=== PATIENT | female | born 2000 | race Caucasian/White ===

== ENCOUNTER 2020-06-01 13:59 | Outpatient (REF) | payer MEDICARE, MEDICAID, SELFPAY ==
--- NOTE | 2020-06-01 | XR_ITS ---
EXAMINATION: CERVICAL AND THORACIC SPINE X-RAY CLINICAL INFORMATION: Pain COMPARISON: None TECHNIQUE: 2 views of the thoracic spine and 4 views of the cervical spine FINDINGS: Cervical spine: Bone alignment is normal. No fracture or dislocation is seen. Disc spaces are normal. Prevertebral soft tissues are normal. Thoracic spine: Bone alignment is normal. No fracture or dislocation is seen. Disc spaces are normal. Paraspinal soft tissues are normal. IMPRESSION: Unremarkable exam.
--- NOTE | 2020-06-01 | US_ITS ---
EXAMINATION: US SOFT TISSUE OF THE NECK CLINICAL INFORMATION: Localized swelling, lump COMPARISON: None TECHNIQUE: Linear transducer grayscale and color Doppler examination of the upper back/lower neck region. FINDINGS: There is no focal sonographic abnormality in the area of palpable concern at the upper aspect of the back and lower neck. IMPRESSION: There is no focal sonographic abnormality in the area of palpable concern at the upper aspect of the back and lower neck. If further imaging evaluation is desired, an MRI could be considered.
== END 2020-06-01 14:00 | disposition home or self-care (01) ==
LOC: HO.US 13:59
PROVIDERS: Visit Provider Emergency Medicine
DX: R22.2 Localized swelling, mass and lump, trunk (principal)
CPT/HCPCS: 72040; 72070; 76536

== ENCOUNTER 2021-02-06 11:18 | Outpatient (REF) | payer MEDICARE, MEDICAID, SELFPAY | END 2021-02-06 11:19 | disposition home or self-care (01) | LOC: HO.LAB 11:18 | PROVIDERS: Visit Provider Internal Medicine | DX: Z20.822 Contact with and (suspected) exposure to COVID-19 (principal) | CPT/HCPCS: C9803; U0003; U0005 ==

== ENCOUNTER 2021-05-05 12:16 | Emergency (ER) | payer MEDICARE, MEDICAID, SELFPAY ==
[2021-05-05 12:30] VITALS: BP 128/82; PULSE 94; RESP 16; TEMP 36.4; O2SAT 98; BMI 35.9
[2021-05-05 13:06] LABS: MANUAL DIFF FLAG NO
[2021-05-05 13:08] LABS: Basophils Percent Auto 0.2 % (0-2); Eosinophils Absolute Auto 0.2 X10*3/uL (0.0-0.4); Eosinophils Percent Auto 1.1 % (0-4); Hematocrit 42.9 % (37-47); Hemoglobin 13.8 g/dl (12.0-16.0); Imm Gran Pct Auto 0.6 % (0.0-0.4); Lymphocytes Absolute Auto 1.1 X10*3/uL (1.2-4.9); Lymphocytes Percent Auto 6.7 % (20-40); Mean Corpuscular HGB Conc 32.2 g/dl (31.0-35.0); Mean Corpuscular Hemoglobin 26.6 pg (27.0-33.0); Mean Corpuscular Volume 82.7 fL (80-98); Mean Platelet Volume 9.9 fL (9.4-12.3); Monocytes Absolute Auto 0.9 X10*3/uL (0.1-1.2); Monocytes Percent Auto 5.5 % (2-11); Neutrophils Absolute Auto 14.6 X10*3/uL (2.0-8.3); Neutrophils Percent Auto 85.9 % (45-73); Platelet Count 355 X10*3/uL (160-400); Red Blood Count 5.19 X10*6/uL (4.20-5.50)
[2021-05-05 13:26] LABS: Alanine Aminotransferase 32 U/L (0-31); Albumin Level 4.6 g/dL (3.5-5.0); Alkaline Phosphatase 94 U/L (39-117); Anion Gap 16 (12-20); Aspartate Amino Transferase 22 U/L (5-31); Bilirubin Direct 0.3 mg/dL (0.0-0.5); Bilirubin Total 0.9 mg/dL (0.0-1.0); Blood Urea Nitrogen 12 mg/dL (9-16); Calcium 10.2 mg/dL (8.4-10.2); Carbon Dioxide 20 mmol/L (22-29); Chloride 110 mmol/L (96-108); Creatinine Clr Calc Pharmacy 115.7; Estimated Glomerular Filt Rate > 60; Glucose Random 114 mg/dL (60-115); Lipase 10 U/L (8-78); Potassium 4.5 mmol/L (3.3-5.1); Sodium 141 mmol/L (135-145); Total Protein 7.6 g/dL (6.5-8.0)
== END 2021-05-05 14:18 | disposition left against medical advice (07) ==
PROVIDERS: Emergency Provider Emergency Medicine
DX: R11.10 Vomiting, unspecified (principal); R19.7 Diarrhea, unspecified; R10.13 Epigastric pain
CPT/HCPCS: 36415; 80048; 80076; 83690; 85025; 99282; 99283; 99284

== ENCOUNTER 2023-11-22 17:31 | Outpatient (REF) | payer MEDICAID, SELFPAY ==
[2023-11-23 17:24] LABS: C. trachomatis RNA TMA DETECTED (NOT DETECTED); Candida glabrata RNA NOT DETECTED (NOT DETECTED); Candida species RNA NOT DETECTED (NOT DETECTED); N. gonorrhoeae RNA TMA NOT DETECTED (NOT DETECTED); Trichomonas vaginalis RNA NOT DETECTED (NOT DETECTED)
== END 2023-11-22 17:32 | disposition home or self-care (01) ==
LOC: HO.HHCLNP 17:31
PROVIDERS: Visit Provider Nurse Practitioner
DX: N89.8 Other specified noninflammatory disorders of vagina (principal); Z20.2 Contact with and (suspected) exposure to infections with a predominantly sexual mode of transmission
CPT/HCPCS: 36415; 81513; 87481; 87491; 87591; 87661

== ENCOUNTER 2023-11-25 12:00 | Outpatient (REF) | payer MEDICAID, SELFPAY ==
[2023-11-25 13:45] LABS: Estimated Average Glucose 108 mg/dL; Hemoglobin A1c % 5.4 % (<6.0)
[2023-11-25 14:25] LABS: Cholesterol 166 mg/dL (<200); HDL Cholesterol 39 mg/dL (>40); LDL Cholesterol Calculated 109 mg/dL (<100); Triglycerides 90 mg/dL (<150)
[2023-11-26 08:37] LABS: Follicle Stimulating Hormone 5.5 mIU/mL; Lutenizing Hormone 14.4 mIU/mL; Prolactin 14.6 ng/mL
[2023-11-26 08:39] LABS: HBS Num1 4.76 mIU/mL (0-7.99); HBc Num1 0.19 S/CO (0.00-0.79); HIV AB/AG Nonreactive (Nonreactive); HIV Num 1 0.05 S/CO (0.00-0.99); Hepatitis B Core Antibody Nonreactive (Nonreactive); Hepatitis B Surface Antigen Negative (Negative); ~HepC Num1 0.07 S/CO (0.00-0.79); ~Hepatitis B Surface Antibody NONREACTIVE (Nonreactive); ~Hepatitis C Antibody Nonreactive (Nonreactive)
[2023-11-27 08:43] LABS: RPR Rapid Plasma Reagin NON-REACTIVE (NON-REACTIVE)
== END 2023-11-25 12:01 | disposition home or self-care (01) ==
LOC: HO.HHCL 12:00
PROVIDERS: Visit Provider Nurse Practitioner
DX: N93.9 Abnormal uterine and vaginal bleeding, unspecified (principal); Z11.3 Encounter for screening for infections with a predominantly sexual mode of transmission
CPT/HCPCS: 36415; 80061; 83001; 83002; 83036; 84146; 84443; 86592; 86704; 86706; 86803; 87340; 87389

== ENCOUNTER 2024-02-13 17:41 | Outpatient (REF) | payer MEDICAID, SELFPAY ==
[2024-02-14 13:09] LABS: Bacterial Vaginosis PCR NEGATIVE (Negative); Candida Group PCR DETECTED (Not Detect); Candida glab krusei PCR NOT DETECTED (Not Detect); Trichomonas vaginalis PCR NOT DETECTED (Not Detect)
== END 2024-02-13 17:42 | disposition home or self-care (01) ==
LOC: HO.HHCLNP 17:41
PROVIDERS: Visit Provider Internal Medicine
DX: N89.8 Other specified noninflammatory disorders of vagina (principal)
CPT/HCPCS: 0352U

== ENCOUNTER 2024-12-11 17:42 | Outpatient (REF) | payer MEDICAID, SELFPAY ==
--- OUTSIDE RECORDS SUMMARY | 2024-12-11 17:45 | XMS_ITS | Clinical Summary ---
Author Organization [address] [facility] Address [address] [place] [address] Phone Care Team Providers Care Instructor Pilot Name Role Phone Physician, Pcp Unknown Primary Care Provider Laura vailable Medications silver sulfADIAZINE (Silvadene) 1 % cream Apply topically 1 (one) time each day. 50 g 4 07/28/20 25 Active povidone-iodine (Betadine) 10 % topical solution Apply topically 1 (one) time each day. 473 mL 4 Active silver sulfADIAZINE (Silvadene) 1 % cream Apply topically 1 (one) time each day. 50 g 5 09/21/19 26 Active Active Problems Problem Noted Date Diagnosed Date Ingrown left big toenail 07/17/2024 Fungal toenail infection 07/17/2024 Cellulitis 07/17/2024 Encounters Date Type Department Care Team Description 09/21/2024 2:30 PM EST Office Visit Orthopedic Surgery - [place] [address] [address] Jaun Barry, DPM Cellulitis of great toe of left foot (Primary Dx); Ingrowing nail from Last 3 Months Social History Tobacco Use Types Packs/Day Years Used Date Smoking Tobacco: Never Assessed Comments Unknown Sex and Gender Information Value Date Recorded Sex Assigned at Not on file Legal Sex Female 9:53 PM EST Gender Identity Not on file Sexual Orientation Not on file Plan of Treatment Health Maintenance Due Date Last Done Comments Cervical Cancer Screening: Pap Smear 2020 Depression Screening 07/28/2022 Social Influencers of Health Screening 07/28/2022 COVID-19 Vaccine ( season) 2024 05/31/2022, 10/26/2021, 10/05/2021 DTaP,Tdap,and Td Vaccines (6 - Td or Tdap) 10/25/2024 10/25/2014, 02/24/2009, 05/17/2003, Additional history exists Influenza Vaccine (Season Ended) 2025 07/13/2020, 09/20/2017, 04/30/2013 Hepatitis B Vaccines Completed 1999, 1999, 1999 IPV Vaccines Completed 05/17/2003, 05/26, 1999, Additional history exists MMR Vaccines Completed 05/17/2003, 06/05/2000 HIB Vaccines Aged Out 04/29/2009, 09/1999, 1999, Additional history exists No longer eligible based on patient's age to complete this topic Varicella Vaccines Completed 11/14/2009, 06/05/2000 HPV Vaccines Completed 04/30/2013, 10/24, 11/14/2009 Hepatitis A Vaccines Completed 06/10/2015, 11/18/19 15 Meningococcal ACWY Vaccine Completed 06/10/2015, HIV Screening Completed 11/25/2023 Hepatitis C Screening Completed 11/25/2023 Meningococcal B Vaccine Aged Out No l onger eligible based on patient's age to complete this topic Pneumococcal Vaccine: Pediatrics (0 to 5 Years) and At-Risk Patients (6 to 64 Years) Aged Out No longer eligible based on patient's age to complete this topic RSV Immunization Patients Under 20 months Aged Out No longer eligible based on patient's age to complete this topic Insurance [place] Care Teams Instructor Pilot Relationship Specialty Start Date End Date Physician, Pcp Unknown PCP - General 07/22/24
--- OUTSIDE RECORDS SUMMARY | 2024-12-11 17:45 | XMS_ITS | Encounter Summary ---
Author Organization [employer] Address [address] [facility] 7t [place] [address] Care Team Providers Care Tacking Machine Operator Name Role Phone Melissaashok Jenae FORD Primary Care Provider [phone] Encounter Details Date Type Department Care Team (Late st Contact Info) Description 12/11/2024 3:00 PM EDT Office Visit [facility] MEDICINE [address] [place] [address] Rhea Alston FNP [address] [place] [address] UTI symptoms (Primary Dx) Social History Tobacco Use Types Packs/Day Years Used Date Smoking Tobacco: Never Smokeless Tobacco: Never Comments Unknown Sex and Gender Information Value Date Recorded Sex Assigned at Female 06/25/2022 10:21 AM EDT Legal Sex Female 10:21 AM EDT Gender Identity Female 06/25/2022 10:21 AM EDT Sexual Orientation Straight 06/25/2022 10 :21 AM EDT documented as of this encounter Last Filed Vital Signs Vital Sign Reading Time Taken Comments Blood Pressure 122/73 12/11/2024 3:00 PM EDT Pulse 72 12/11/2024 3:00 PM EDT Temperature 36.9 ??C (98.4 ??F) 12/11/2024 3:00 PM ED T Respiratory Rate 16 12/11/2024 3:00 PM EDT Oxygen Saturation - - Inhaled Oxygen Concentration - - Weight 114 kg (250 lb 4 oz) 12/11/2024 3:00 PM E DT Height 157.5 cm (5' 2 ) 12/11/2024 3:00 PM EDT Body Mass Index 45.77 12/11/2024 3:00 PM EDT documented in this encounter Plan of Treatment Scheduled Orders Name Type Priority Associated Diagnoses Orde r Schedule Chlamydia/N. Gonorrhoeae RNA, TMA, Urogenitial Microbiology Routine UTI symptoms Ordered: 12/11/2024 Bacterial Vaginosis Panel Microbiology Routine UTI symptoms Ordered: 12/11/2024 documented as of this encounter Procedures Procedure Name Priority Date/Time Associated Diagnosis Comments POCT URINALYSIS DIPSTICK Routine 12/11/2024 3:18 PM EDT UTI symptoms documented in this encounter Results * POCT Urinalysis (12/11/2024 3:18 PM EDT) Color, UA Yellow Clarity, UA Clear Glucose, UA Negative Bilirubin, UA Negative Ketones, UA Negative Spec Grav, UA 1.030 Blood, UA Negative Negative, None Detected pH, UA 6.0 Protein, UA Negative Urobilinogen, UA 0.2 Leukocytes, UA Negative Negative, Rare, Trace Nitrite, UA Negative Negative, None Detected Appearance, UA clear QC Media Lot # [id number] Lot# Expiration Date [id number] Urine 12/11/2024 3:18 PM EDT Rhea Alston OFFICE HELPER POINT OF CARE TEST ENTER/EDIT ORDERABLES Final Result documented in this encounter Visit Diagnoses Diagnosis UTI symptoms- Primary documented in this encounter Care Teams Tacking Machine Operator Relationship Specialty Start Date End Date Jenae Goodman NP [address] [place] [id number] PCP - General Family Medicine 05/31/23 documented as of this encounter
--- OUTSIDE RECORDS SUMMARY | 2024-12-11 17:45 | XMS_ITS | Encounter Summary ---
Author Organization [employer] Address [address] [facility] 7t [place] [address] Care Team Providers Care Oilseed Meat Presser Name Role Phone Jenae Goodman NP Primary Care Provider [phone] Reason for Visit * Reason Onset Date Comments Per Mo 12/11/2024 Encounter Details Date Type Department Care Team ([facility] st Contact Info) Description 12/11/2024 Telephone [facility] MEDICINE [address] [place] [address] Rhea Alston FNP [address] [place] [address] Per Mo Social History Tobacco Use Types Packs/Day Years Used Date Smoking Tobacco: Never Smokeless Tobacco: Never Comments Unknown Sex and Gender Information Value Date Recorded Sex Assigned at Female 06/25/2022 10:21 AM EDT Legal Sex Female 10:21 AM EDT Gender Identity Female 06/25/2022 10:21 AM EDT Sexual Orientation Straight 06/25/2022 10 :21 AM EDT documented as of this encounter Miscellaneous Notes * Telephone Encounter - Johanna Aden MA - 12/11/2024 3:48 PM EDT MAGDI called pt and advised her to come in on Saturday12/15/2024 downstairs to lab for urine sample due to sample not being enough during visit with Rhea. documented in this encounter Plan of Treatment Not on file documented as of this encounter Visit Diagnoses Not on filedocumented in this encounter Care Teams Oilseed Meat Presser Relationship Specialty Start Date End Date Jenae Goodman NP [address] [place] [address] PCP - General Family Medicine 05/31/23 documented as of this encounter
--- OUTSIDE RECORDS SUMMARY | 2024-12-11 17:45 | XMS_ITS | Encounter Summary ---
Author Organization [facility] Address [address] [facility] 7t [place] [address] Care Team Providers Care Massage Operator Name Role Phone Jenae Goodman NP Primary Care Provider [phone] Encounter Details Date Type Department Care Team (Latest Contact Info) Description 12/11/2024 Travel Social History Tobacco Use Types Packs/Day Years Used Date Smoking Tobacco: Never Smokeless Tobacco: Never Comments Unknown Sex and Gender Information Value Date Recorded Sex Assigned at Female 06/25/2022 10:21 AM EDT Legal Sex Female 10:21 AM EDT Gender Identity Female 06/25/2022 10:21 AM EDT Sexual Orientation Straight 06/25/2022 10 :21 AM EDT documented as of this encounter Plan of Treatment Not on file documented as of this encounter Visit Diagnoses Not on filedocumented in this encounter Care Teams Massage Operator Relationship Specialty Start Date End Date Jenae Goodman NP [address] [place] [id number] PCP - General Family Medicine 05/31/23 documented as of this encounter
--- OUTSIDE RECORDS SUMMARY | 2024-12-11 17:45 | XMS_ITS | Encounter Summary ---
Author Organization [employer] [facility] Address [address] [place] [address] 7 [place] [address] Care Team Providers Care Area Attendant Name Role Phone Jenae Goodman NP Primary Care Provider [phone] Reason for Visit * Reason Onset Date Comments Nurse Triage 03/17/2024 Encounter Details Date Type Department Care Team ([facility] st Contact Info) Description 03/17/2024 Telephone [facility] MEDICINE [address] [place] [address] Jenae Goodman NP [address] [place] [address] Nurse Triage Social History Tobacco Use Types Packs/Day Years [...] encounter Miscellaneous Notes * Telephone Encounter - Shreyas Tse - 03/17/2024 1:13 PM EDT Symptoms: Vision Loss or Change, Headache Outcome: Talk to a nurse or provider within 15 minutes Reason: Eye pain The caller accepted this outcome documented in this encounter Plan of Treatment Not on file documented as of this encounter Visit Diagnoses Not on filedocumented in this encounter Care Teams Area Attendant Relationship Specialty Start Date End Date Jenae Goodman NP [address] [place] [address] PCP - General Family Medicine 05/31/23 documented as of this encounter
--- OUTSIDE RECORDS SUMMARY | 2024-12-11 17:45 | XMS_ITS | Clinical Summary ---
Author Organization [employer] Address [address] [facility] 7t [place] [address] Care Team Providers Care Roofing Superintendent Name Role Phone Jenae Goodman NP Primary Care Provider [phone] Allergies No known active allergies Medications acetaminophen (Tylenol) 325 MG tablet 2 tablet by Oral route every 4 to 6 hours prn fever or pain 6 Active dexAMETHasone (Maxidex) 0.1 % ophthalmic suspension Instill 3-4 drops into ear canal 2-3 times a day, reduce dose gradually after ear inflammation and pruritis improves. Repeat as necessary 2 Active fluconazole (Diflucan) 150 MG tabletIndicatio ns:Yeast infection Take one tablet then after 72 hrs take another tablet 2 tablet 4 Active selenium sulfide (Selsun) 2.5 % shampooIndicati ons:Seborrheic dermatitis Lather in to scalp twice a week while in shower, leave on 5 minutes and rinse 118 mL 2 4 Active Vit-Fe Fumarate-FA ( Vitamins) 28-0.8 MG tabletIndicatio ns:Family Planning Take 1 tablet by mouth Once per day. 90 tablet 3 4 06/23/20 25 Active betamethasone valerate (Valisone) 0.1 % lotionIndicatio ns:Seborrheic dermatitis Apply topically 2 times daily. For 1 week 60 mL 1 4 Active Active Problems Problem Noted Date Diagnosed Date Trying to get 06/23/2024 Assessment & Plan (06/23/2024 3:05 PM EDT): Late period. Hx of irregular periods. HCG-Urine resulted negative. -prescribed vitamins. Flaky scalp 06/23/2024 Assessment & Plan (06/23/2024 1:18 PM EDT): Dry scalp with large flakes. -will prescribe selenium sulfide shampoo Ingrown left big toenail 06/23/2024 Assessment & Plan (09/04/2024 6:21 PM EST): Underlying cellulitis, recommended proper nail care. Will send trial of bactrim, if symptoms persist recommended to fnathan prn Assessment & Plan (06/23/2024 1:19 PM EDT): Left great toe ingrown, too sensitive for any procedural intervention. -referred to podiatry 06/23/23 Fungal toenail infection 06/23/2024 Assessment & Plan (06/23/2024 3:05 PM EDT): Bilateral great toes consistent with fungal infection. -will prescribe short course of Augmentin as well as anti-fungal. -referred to Podiatry 06/23/24 Seborrheic dermatitis 06/23/2024 Vaginal itching 02/13/2024 Assessment & Plan (02/13/2024 11:05 AM EDT): Patient reports recent CRS test for CG came back negative Today BV ordered Bilateral impacted cerumen 02/13/2024 Assessment & Plan (02/13/2024 11:06 AM EDT): Debrox for 4 days then come back nurse visit for er lavage Otitis media 02/13/2024 Abnormal uterine bleeding (AUB) 02/13/2024 Assessment & Plan (02/13/2024 3:08 PM EDT): -may be due to infection process given complaint of vaginal discharge -labs ordered to evaluate for underlying cause for AUB -will inform patient of lab and imaging results once obtained Vaginal discharge 02/13/2024 Assessment & Plan (02/13/2024 3:06 PM EDT): -sureswab sample obtained for testing. Will treat as necessary -advised to abstain from sexual intercourse until test results have been received -will call with test results Routine screening for STI (sexually transmitted infection) 02/13/2024 Assessment & Plan (02/13/2024 3:09 PM EDT): -patient is not forthcoming regarding sexual activity, however she is agreeable to testing. -will treat/ vaccinate as necessary pending test results Closed fracture of right hand with routine heali ng 03/10/2023 Overview (03/10/2023): Avulsion fracture 08/09/22 MRI F/u PRN Kidney stone 03/13/2017 Attention deficit hyperactivity disorder, combin ed type 04/30/2013 Oppositional defiant disorder 04/30/2013 Encounters Date Type Department Care Team Description 12/11/2024 3:00 PM EDT Office Visit [facility] MEDICINE [address] [place] [address] Rhea Alston FNP UTI symptoms (Primary Dx) 12/11/2024 Telephone [facility] MEDICINE [address] [place] [address] Rhea Alston FNP Per Mo 12/11/2024 Travel 12/09/2024 Telephone [facility] MEDICINE [address] [place] [address] Jenae Goodman NP Nurse Triage 11/06/2024 Population Health Risk Score [facility] ([facility]) Department [address] [id number] Provider, Population Health Generic 10/08/2024 Telephone [facility] MEDICINE [address] [place] [address] Kimberly Alas RN from Last 3 Months Immunizations Name Administration Dates Next Due DTP 02/24/2009,1999,1999 DTaP 05/17/2003,1999 HPV, Quadrivalent 04/30/2013,11/07/2011,11/15/19 10 Hep A, ped/adol, 2 dose 06/10/2015,11/17/2014 Hep B, Adolescent or Pediatric 1999,1999,1999 Hib (HbOC) 04/29/2009, 0,1999,06/26 IPV 05/17/2003, 0,1999,09/15 Influenza injectable quadriv alent IIV4 with preservative 09/20/2017 Influenza injectable quadriv alent preservative free 07/13/2020 Influenza, Split (incl. lula fied surface antigen) 04/30/2013 MMR 05/17/2003,06/05/2000 Meningococcal MCV4P [id number]-[id number] 06/10/2015,04/30/20 13 Tdap 10/25/2014 Varicella 11/14/2009,06/05/2000 Social History Tobacco Use Types Packs/Day Years Used Date Smoking Tobacco: Never Smokeless Tobacco: Never Tobacco Cessation:Counseling Given: Not Answered Comments Unknown Sex and Gender Information Value Date Recorded Sex Assigned at Female 06/25/2022 10:21 AM EDT Legal Sex Female 10:21 AM EDT Gender Identity Female 06/25/2022 10:21 AM EDT Sexual Orientation Straight 06/25/2022 10 :21 AM EDT Last Filed Vital Signs Vital Sign Reading Time Taken Comments Blood Pressure 122/73 12/11/2024 3:00 PM EDT Pulse 72 12/11/2024 3:00 PM EDT Temperature 36.9 ??C (98.4 ??F) 12/11/2024 3:00 PM ED T Respiratory Rate 16 12/11/2024 3:00 PM EDT Oxygen Saturation 97% 07/09/2024 2:23 PM EST Inhaled Oxygen Concentration - - Weight 114 kg (250 lb 4 oz) 12/11/2024 3:00 PM E DT Height 157.5 cm (5' 2 ) 12/11/2024 3:00 PM EDT Body Mass Index 45.77 12/11/2024 3:00 PM EDT Plan of Treatment Health Maintenance Due Date Last Done Comments Depression Screening 1999 SDOH Screening 1999 Alcohol/Substance Use Screening 2011 Family Planning (PISQ) 2014 Dental Oral Exam 06/16/2021 12/14/2020, 07/2018, 04/07/2015, Additional history exists Dental Prophylaxis 06/16/2021 12/14/2020, 1 09/06/2017, 04/07/2015, Additional history exists Dental X-Ray: Bitewings 12/15/2021 12/15/19 21, 07/07/2018, 04/07/2015, Additional history exists Dental X-Ray: Full Mouth 12/16/2023 12/14/2020, 04/27 COVID-19 Vaccine ( season) 2024 05/31/2022, 10/26/2021, 10/05/2021 Influenza Vaccine (#1) 2024 , 09/20/2017, 04/30/2013 HPV/Cotest 12/15/2024 Pap Smear 12/15/2024 12/15/2021 Tobacco Screening 12/11/2025 12/11/2024 DTaP/Tdap/Td Vaccines (7 - Td or Tdap) 10/04/2034 10/04/2024, 10/25/2014, 02/24/2009, Additional history exists Zoster Vaccines (1 of 2) 2049 RSV Patients and Patients Aged 60 years or older (1 - 1-dose 75+ series) 2074 Hepatitis B Vaccines Completed 1999, 1999, 1999 IPV Vaccines Completed 05/17/2003, 05/26, 1999, Additional history exists HIB Vaccines Aged Out 04/29/2009, 09/1999, 1999, Additional history exists No longer eligible based on patient's age to complete this topic HPV Vaccines Completed 04/30/2013, 10/24, 11/14/2009 Hepatitis A Vaccines Completed 06/10/2015, 11/18/19 15 Meningococcal Vaccine Completed 06/10/2015, 013 HIV Screening Completed 11/25/2023, 06/26, 10/06/2020 Hepatitis C Screening Completed 11/25/2023 , 07/11/2022, 10/06/2020 Pneumococcal Vaccine: Pediatrics (0 to 5 Years) and At-Risk Patients (6 to 49) Years) Aged Out No longer eligible based on patient's age to complete this topic RSV under 20 months Aged Out No longe r eligible based on patient's age to complete this topic Rotavirus Vaccines Aged Out No longer eligible based on patient's age to complete this topic Procedures Procedure Name Priority Date/Time Associated Diagnosis Comments POCT URINALYSIS DIPSTICK Routine 12/11/2024 3:18 PM EDT UTI symptoms HEPATITIS C AB W/REFL TO HCV RNA, QN, PCR Routine 11/25/2023 12:02 PM EDT Routine screening for STI (sexually transmitted infection) HIV 1/2 ANTIGEN/ANTIBODY, FOURTH GENERATION W/RFL Routine 11/25/2023 12:02 PM EDT Routine screening for STI (sexually transmitted infection) HM PAP/HPV Routine 12/15/2021 2:55 PM EDT PROPHYLAXIS - ADULT Routine 12/14/2020 1 2:00 AM EDT INTRAORAL - COMPLETE SERIES OF RADIOGRAPHIC IMAGES Routine 12/14/2020 12:00 AM EDT PERIODIC ORAL EVALUATION - ESTABLISHED PATIENT Routine 12/14/2020 12:00 AM EDT from Last 3 Months or Most Recently Relevant to Health Maintenance Results * POCT Urinalysis (12/11/2024 3:18 PM [...] Media Lot # [id number] Lot# Expiration Date [id number] Urine 12/11/2024 3:18 PM EDT Rhea Alston MILITARY SCIENCE INSTRUCTOR POINT OF CARE TEST ENTER/EDIT ORDERABLES Final Result * Hepatitis C Antibody with Reflex to HCV, RNA, Quantitative, Real-Time PCR (11/25/2023 12:02 PM EDT) Hepatitis C Antibody Nonreactive Nonreactive [facility] Comment:Antibodies to HCV no t detected; does not exclude early acuteHCV infection. Blood Venous blood specimen / Unknown 11/25/2023 12:02 PM EDT 11/25/2023 1:16 PM EDT [facility] LAB BLOOD ORDERABLES Final Resu lt [facility] [address] [place] [address] [phone] * HIV-1/2 Antigen and Antibodies, Fourth Generation, with Reflexes (11/25/2023 12:02 PM EDT) HIV AB/AG Nonreactive Nonreactive [facility] Comment:HIV-1 p24 Ag and/or HIV-1/HIV-2 Ab not detected.A test result that is nonreactive does not exclude thepossibility of exposure to or infection with HIV-1 and/orHIV-2. Nonreactive results in this assay for individualswith prior exposure to HIV-1 and/or HIV-2 may be due toantigen and antibody levels that are below the limit ofdetection of this assay.The [employer] HIV Ag/Ab Combo assay result andsupplemental assay results should be interpreted inconjunction with the patient's clinical presentation,history and other laboratory results. If the results areinconsistent with clinical evidence, additional testing issuggested to confirm the result. Blood Venous blood specimen / Unknown 11/25/2023 12:02 PM EDT 11/25/2023 1:16 PM EDT [facility] TELEGRAPH DISPATCHER LAB BLOOD ORDERABLES Final Resu lt [facility] [address] [place] [address] [phone] * HM PAP/HPV (12/15/2021 2:55 PM EDT) us Historical Provider HEALTH MAINTENANCE Final Result from Last 3 Months or Most Recently Relevant to Health Maintenance Insurance [facility] MEDICA[facility] STAND ADULT Care Teams Roofing Superintendent Relationship Specialty Start Date End Date Jenae Goodman NP [address] [place] [address] PCP - General Family Medicine 05/31/23
--- OUTSIDE RECORDS SUMMARY | 2024-12-11 17:45 | XMS_ITS | Encounter Summary ---
Author Organization [employer] [facility] Address [address] [place] [address] 7t [place] [address] Care Team Providers Care Laser Printing Operator Name Role Phone Vesta Casper Primary Care Provider [phone] Jenae Goodman NP Primary Care Provider [phone] Encounter Details Date Type Department Care Team (Latest Contact Info) Description 12/14/2020 Abstract C CONVERSIONS Dental, Provider, DDS Social History Tobacco Use Types Packs/Day Years [...] on filedocumented in this encounter Care Teams Laser Printing Operator Relationship Specialty Start Date End Date Vesta Casper FNP PCP - General Family Medicine 02/21/22 05/30/23 Jenae Goodman NP [address] [place] [id number] PCP - General Family Medicine 05/31/23 documented as of this encounter
--- OUTSIDE RECORDS SUMMARY | 2024-12-11 17:45 | XMS_ITS | Encounter Summary ---
Author Organization [employer] Address [address] [facility] [address] [place] [address] Care Team Providers Care Wilton Weaver Name Role Phone Jenae Goodman NP Primary Care Provider [phone] Reason for Visit * Reason Onset Date Comments Nurse Triage 12/09/2024 Encounter Details Date Type Department Care Team ([facility] st Contact Info) Description 12/09/2024 Telephone [facility] [address] [place], [place] [phone] Jenae Goodman NP [address] [place] [address] Nurse Triage Social History Tobacco Use Types [...] encounter Miscellaneous Notes * Telephone Encounter - Anabel Campbell RN - 12/09/2024 12:11 PM EDT called pt to triage, spoke to pt pt states 2 days duration of frequency, urgency, small amounts, burning and pressure. pt denies known fever, rash, severe pain, back pain, or strong odor. given appt Saturday at pt request, on blue team at 3:00 for exam. advised home care: rest, fluids, monitor temperature, and call back if worsening or new concerns. pt understands and agrees with plan. insurance verified. Protocol Used: Urinary Symptoms (Adult) Protocol-Based Disposition: See in Office or Video Visit Today Video visit offer not recorded Positive Triage Question: * Urinating more frequently than usual (i.e., frequency) OR new-onset of the feeling of an urgent need to urinate (i.e., urgency) * All higher-acuity triage questions were negative Care Advice Discussed: * Reasons To Call Back - Fever occurs - Pain or burning with urination - Unable to urinate and bladder feels full - You become worse * Telephone Encounter - Loan Corley - 12/09/2024 11:39 AM EDT Symptom: Urination Pain Outcome: Schedule a same-day appointment or talk to a nurse or provider today Reason: Caller denied all higher acuity questions The caller accepted this outcome. documented in this encounter Plan of Treatment Not on file documented as of this encounter Visit Diagnoses Not on filedocumented in this encounter Care Teams Wilton Weaver Relationship Specialty Start Date End Date Jenae Goodman NP [address] [place] [address] PCP - General Family Medicine 05/31/23 documented as of this encounter
--- OUTSIDE RECORDS SUMMARY | 2024-12-11 17:45 | XMS_ITS | Encounter Summary ---
Author Organization [employer] [facility] Address [address] [place] [address] 7[address] [place] [address] Care Team Providers Care Laboratory Machinist Name Role Phone Jenae Goodman NP Primary Care Provider [phone] Encounter Details Date Type Department Care Team ([facility] st Contact Info) Description 06/11/2024 Orders Only [facility] [address] [place] [address] Provider, Historical, Social History Tobacco Use Types Packs/Day Years [...] on file documented as of this encounter Procedures Procedure Name Priority Date/Time Associated Diagnosis Comments HM PAP/HPV Routine 12/15/2021 2:55 PM EDT documented in this encounter Results * HM PAP/HPV (12/15/2021 2:55 PM EDT) us Historical Provider HEALTH MAINTENANCE Final Result documented in this encounter Visit Diagnoses Not on filedocumented in this encounter Care Teams Laboratory Machinist Relationship Specialty Start Date End Date Jenae Goodman NP [address] [place] [address] PCP - General Family Medicine 05/31/23 documented as of this encounter
[2024-12-12 02:34] LABS: CT PCR NOT DETECTED (Not Detect.); NG PCR NOT DETECTED (Not Detect.)
[2024-12-12 11:41] LABS: Bacterial Vaginosis PCR POSITIVE (Negative); Candida Group PCR NOT DETECTED (Not Detect); Candida glab krusei PCR NOT DETECTED (Not Detect); Trichomonas vaginalis PCR NOT DETECTED (Not Detect)
== END 2024-12-11 17:43 | disposition home or self-care (01) ==
LOC: HO.HHCLNP 17:42
PROVIDERS: Visit Provider Nurse Practitioner Family
DX: R39.9 Unspecified symptoms and signs involving the genitourinary system (principal)
CPT/HCPCS: 81515; 87491; 87591

== ENCOUNTER 2024-12-16 14:49 | Outpatient (REF) | payer MEDICAID, SELFPAY ==
--- OUTSIDE RECORDS SUMMARY | 2024-12-16 17:40 | XMS_ITS | Encounter Summary ---
Author Organization [employer] Address [address] [place] [address] [address] [place] [address] Care Team Providers Care Optical Advisor Name Role Phone Jenae Goodman NP Primary Care Provider [phone] Reason for Visit * Reason Onset Date Comments Results 12/16/2024 Encounter Details Date Type Department Care Team ([facility] st Contact Info) Description 12/16/2024 Telephone [facility] [address] [place] [address] Rhea Alston FNP [address] [place] [address] Results Social History Tobacco Use Types Packs/Day Years Used Date Smoking Tobacco: Never Smokeless Tobacco: Never Alcohol Answer Date Recorded Q1: How often do you have a drink containing alc ohol? 2 12/16/2024 Q2: How many drinks containi ng alcohol do you have on a typical day when you are drinking? 0 12/16/2024 Q3: How often do you have six or more drinks on one occasion? 2 12/16/2024 Depression Answer Date Recorded Patient Health Questionnaire-9 Score 0 12/16/2024 Patient Health Questionnaire-9 Score 0 12/16/2024 Last PHQ-9: Questionnaire Data Not on file 0 12/16/2024 Depression Answer Date Recorded Patient Health Questionnaire-2 Score 0 12/16/2024 Comments Unknown Sex and Gender Information Value Date Recorded Sex Assigned at Female 06/25/2022 10:21 AM EDT Legal Sex Female 10:21 AM EDT Gender Identity Female 06/25/2022 10:21 AM EDT Sexual Orientation Straight 06/25/2022 10 :21 AM EDT documented as of this encounter Miscellaneous Notes * Telephone Encounter - Rosario James RN - 12/16/2024 8:41 AM EDT Second call attempt regarding message below. Voicemail box full. Will re-task for third attempt. From: SENDY Philip Sent: 12/15/2024 1:40 PM EDT To: [facility] Blue Team Nurses Can you please let Sariah know her test came back positive for BV and I have sent antibiotics to her her pharmacy on record [facility] Thank you documented in this encounter Plan of Treatment Not on file documented as of this encounter Visit Diagnoses Not on filedocumented in this encounter Additional Health Concerns Assessment Noted Time PHQ-9 Depression Total Score: 0 12/17/19 25 2:28 PM EDT documented as of this encounter Care Teams Optical Advisor Relationship Specialty Start Date End Date Jenae Goodman NP [address] [place] [address] PCP - General Family Medicine 05/31/23 documented as of this encounter
--- OUTSIDE RECORDS SUMMARY | 2024-12-16 17:40 | XMS_ITS | Encounter Summary ---
Author Organization [employer] Address [address] [place] [address] [address] [place] [address] Care Team Providers Care Head Gauge Unit Operator Name Role Phone Jenae Goodman NP Primary Care Provider [phone] Reason for Visit * Reason Onset Date Comments Per Mo 12/11/2024 Encounter Details Date Type Department Care Team (Late st Contact Info) Description 12/11/2024 Telephone [facility] [address] [place] [address] Rhea Alston FNP [address] [place] [address] Per Mo Social History Tobacco Use Types [...] on filedocumented in this encounter Care Teams Head Gauge Unit Operator Relationship Specialty Start Date End Date Jenae Goodman NP [address] [place] [id number] PCP - General Family Medicine 05/31/23 documented as of this encounter
--- OUTSIDE RECORDS SUMMARY | 2024-12-16 17:40 | XMS_ITS | Encounter Summary ---
Author Organization [employer] Address [address] [place] [address] Care Team Providers Care Police Investigator Name Role Phone Jenae Goodman NP Primary Care Provider [phone] Reason for Visit * Reason Comments Annual Exam Encounter Details Date Type Department Care Team ([facility] Contact Info) Description 12/16/2024 2:45 PM EDT Office Visit [facility] [address] [place] [address] Sulema Cantrell MD [address] [place] [address] Annual physical exam (Primary Dx); Routine screening for STI (sexually transmitted infection); Dietary counseling; Exercise counseling; Class 3 severe obesity due to excess calories without serious comorbidity with body mass index (BMI) of 45.0 to 49.9 in adult Social History Tobacco Use Types Packs/Day Years Used Date Smoking Tobacco: Never Smokeless Tobacco: Never Tobacco Cessation:Counseling Given: No Alcohol Answer Date Recorded Q1: How often [...] Sign Reading Time Taken Comments Blood Pressure 126/76 12/16/2024 2:27 PM EDT Pulse 84 12/16/2024 2:27 PM EDT Temperature 36.8 ??C (98.3 ??F) 12/16/2024 2:27 PM ED T Respiratory Rate 20 12/16/2024 2:27 PM EDT Oxygen Saturation 98% 12/16/2024 2:27 PM EDT Inhaled Oxygen Concentration - - Weight 113 kg (250 lb) 12/16/2024 2:27 PM EDT Height 157.5 cm (5' 2 ) 12/16/2024 2:27 PM EDT Body Mass Index 45.73 12/16/2024 2:27 PM EDT documented in this encounter Progress Notes * Sulema Cantrell MD - 12/16/2024 2:45 PM EDT SUBJECTIVE Sariah Montana is a 24 y.o. female who presents for Annual Exam. HPI Ms Sariah Montana is here for her annual physical exam. 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 No complaints today. Patient feels overall well. Patient Active Problem List Diagnosis Attention deficit hyperactivity disorder, combined type Kidney stone Oppositional defiant disorder Closed fracture of right hand with routine healing Vaginal itching Bilateral impacted cerumen Otitis media Abnormal uterine bleeding (AUB) Vaginal discharge Routine screening for STI (sexually transmitted infection) Trying to get Flaky scalp Ingrown left big toenail Fungal toenail infection Seborrheic dermatitis No Known Allergies Current Outpatient Medications on File Prior to Visit Medication Sig Dispense Refill acetaminophen (Tylenol) 325 MG tablet 2 tablet by Oral route every 4 to 6 hours prn fever or pain dexAMETHasone (Maxidex) 0.1 % ophthalmic suspension Instill 3-4 drops into ear canal 2-3 times a day, reduce dose gradually after ear inflammation and pruritis improves. Repeat as necessary fluconazole (Diflucan) 150 MG tablet Take one tablet then after 72 hrs take another tablet 2 tablet0 metroNIDAZOLE (Flagyl) 500 MG tablet Take 1 tablet (500 mg) by mouth 2 times daily for 7 days. 14 tablet 0 [DISCONTINUED] betamethasone valerate (Valisone) 0.1 % lotion Apply topically 2 times daily. For 1 week 60 mL 1 [DISCONTINUED] Vit-Fe Fumarate-FA ( Vitamins) 28-0.8 MG tablet Take 1 tablet by mouth Once per day. 90 tablet 3 [DISCONTINUED] selenium sulfide (Selsun) 2.5 % shampoo Lather in to scalp twice a week while in shower, leave on 5 minutes and rinse 118 mL 2 No current facility-administered medications on file prior to visit. Review of Systems Constitutional: Negative for activity change, appetite change, chills and diaphoresis. HENT: Negative for dental problem, drooling, ear discharge, ear pain and hearing loss. Eyes: Negative for pain, discharge and itching. Respiratory: Negative for cough, choking and chest tightness. Cardiovascular: Negative for chest pain and leg swelling. Gastrointestinal: Negative for blood in stool and diarrhea. Genitourinary: Negative for difficulty urinating, dyspareunia, dysuria, enuresis, flank pain, frequency and genital sores. Musculoskeletal: Negative for arthralgias, gait problem and joint swelling. Skin: Negative for pallor. Neurological: Negative for dizziness, seizures, speech difficulty, light- headedness and numbness. Psychiatric/Behavioral: Negative for behavioral problems, confusion and decreased concentration. OBJECTIVE Vitals: 12/16/24 1427 BP: 126/76 BP Location: Right arm Patient Position: Sitting BP Cuff Size: Large adult Pulse: 84 Resp: 20 Temp: 98.3 ??F (36.8 ??C) TempSrc: Oral SpO2: 98% Weight: 250 lb (113 kg) Height: 5' 2 (1.575 m) Physical Exam Constitutional: General: She is not in acute distress. Appearance: Normal appearance. She is not ill-appearing, toxic-appearing or diaphoretic. HENT: Head: Normocephalic. Right Ear: Tympanic membrane normal. There is no impacted cerumen. Left Ear: Tympanic membrane normal. There is no impacted cerumen. Nose: Nose normal. No congestion or rhinorrhea. Mouth/Throat: Mouth: Mucous membranes are moist. Eyes: General: No scleral icterus. Right eye: No discharge. Left eye: No discharge. Pupils: Pupils are equal, round, and reactive to light. Cardiovascular: Rate and Rhythm: Normal rate and regular rhythm. Heart sounds: No murmur heard. No friction rub. No gallop. Pulmonary: Effort: Pulmonary effort is normal. No respiratory distress. Breath sounds: No stridor. No wheezing, rhonchi or rales. Chest: Chest wall: No tenderness. Abdominal: General: There is no distension. Palpations: Abdomen is soft. There is no mass. Tenderness: There is no abdominal tenderness. There is no right CVA tenderness or left CVA tenderness. Musculoskeletal: General: Normal range of motion. Cervical back: Normal range of motion. Neurological: General: No focal deficit present. Mental Status: She is alert and oriented to person, place, and time. Psychiatric: Mood and Affect: Mood normal. Assessment/Plan Assessment/Plan Diagnoses and all orders for this visit: Annual physical exam Comments: Normal exam Patient is to maintain a healthy and balanced diet. 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 Orders: - CBC auto differential; Future - Comprehensive Metabolic Panel; Future - TSH W/Reflex to FT4; Future - T-SPOT??.TB; Future Routine screening for STI (sexually transmitted infection) Comments: Asymptomatic Safe sexual practices recommended. Patient will be contacted with results. Orders: - HIV-1/2 Antigen and Antibodies, Fourth Generation, with Reflexes; Future - Hepatitis C Antibody with Reflex to HCV, RNA, Quantitative, Real-Time PCR; Future - Syphilis Screen; Future Dietary counseling Exercise counseling Class 3 severe obesity due to excess calories without serious comorbidity with body mass index (BMI) of 45.0 to 49.9 in adult Dietary Recommendations: Fruits, vegetables, whole grains, protein foods, and fat-free or low-fat dairy products are healthychoices. Eat different types of protein foods in your diet. This can include seafood, lean meats, poultry, beans, peas, lentils, nuts, seeds, soy products, and eggs. Limit foods and beverages higher in added sugars, saturated fat, and sodium. Exercise Recommendations: At least 150 minutes of moderate-intensity physical activity per week, or an equivalent combinationof moderate- and vigorous-intensity activity documented in this encounter Miscellaneous Notes * Patient Education Note - Sulema Cantrell MD - 12/16/2024 6:41 PM EDT Images from the original note were not included. Patient Education Table of Contents Healthy Eating, Adult To view videos and all your education online visit, [email or web address] or scan this QR code with your smartphone. Access to this content will in one year. Healthy Eating, Adult Healthy eating may help you get and keep a healthy body weight, reduce the risk of chronic disease,and live a long and productive life. It is important to follow a healthy eating pattern. Your nutritional and calorie needs should be met mainly by different nutrient-rich foods. What are tips for following this plan? Reading food labels Read labels and choose the following: ? Reduced or low sodium products. ? Juices with 100% fruit juice. ? Foods with low saturated fats (<3 g per serving) and high polyunsaturated and monounsaturated fats. ? Foods with whole grains, such as whole wheat, cracked wheat, brown rice, and wild rice. ? Whole grains that are fortified with folic acid. This is recommended for females who are or who want to become . Read labels and do not eat or drink the following: ? Foods or drinks with added sugars. These include foods that contain brown sugar, corn sweetener, corn syrup, dextrose, fructose, glucose, high-fructose corn syrup, honey, invert sugar, lactose, malt syrup, maltose, molasses, raw sugar, sucrose, trehalose, or turbinado sugar. ? Limit your intake of added sugars to less than 10% of your total daily calories. Do not eat more than the following amounts of added sugar per day: ? 6 teaspoons (25 g) for females. ? 9 teaspoons (38 g) for males. ? Foods that contain processed or refined starches and grains. ? Refined grain products, such as white flour, degermed cornmeal, white bread, and white rice. Shopping Choose nutrient-rich snacks, such as vegetables, whole fruits, and nuts. Avoid high-calorie and high-sugar snacks, such as potato chips, fruit snacks, and candy. Use oil-based dressings and spreads on foods instead of solid fats such as butter, margarine, sour cream, or cream cheese. Limit pre-made sauces, mixes, and instant products such as flavored rice, instant noodles, and ready-made pasta. Try more plant-protein sources, such as tofu, tempeh, black beans, edamame, lentils, nuts, and seeds. Explore eating plans such as the Mediterranean diet or vegetarian diet. Try heart-healthy dips made with beans and healthy fats like hummus and guacamole. Vegetables go great with these. Cooking Use oil to saut?? or stir-dietrich foods instead of solid fats such as butter, margarine, or lard. Try baking, boiling, grilling, or broiling instead of frying. Remove the fatty part of meats before cooking. Steam vegetables in water or broth. Meal planning At meals, imagine dividing your plate into fourths: ? One-half of your plate is fruits and vegetables. ? One-fourth of your plate is whole grains. ? One-fourth of your plate is protein, especially lean meats, poultry, eggs, tofu, beans, or nuts. Include low-fat dairy as part of your daily diet. Lifestyle Choose healthy options in all settings, including home, work, school, restaurants, or stores. Prepare your food safely: ? Wash your hands after handling raw meats. ? Where you prepare food, keep surfaces clean by regularly washing with hot, soapy water. ? Keep raw meats separate from dwnoh-wz-oyu foods, such as fruits and vegetables. ? dry molder, meat, poultry, and eggs to the recommended temperature. Get a food thermometer. ? Store foods at safe temperatures. In general: ? Keep cold foods at 40?F (4.4?C) or below. ? Keep hot foods at 140?F (60?C) or above. ? Keep your freezer at 0?F (-17.8?C) or below. ? Foods are not safe to eat if they have been between the temperatures of 40?140?F (4.4?60?C) for more than 2 hours. What foods should I eat? Fruits Aim to eat 1??2? cups of fresh, canned (in natural juice), or frozen fruits each day. One cup of fruit equals 1 small apple, 1 large banana, 8 large strawberries, 1 cup (237 g) canned fruit, ? cup (82 g) dried fruit, or 1 cup (240 mL) 100% juice. Vegetables Aim to eat 2?4 cups of fresh and frozen vegetables each day, including different varieties and colors. One cup of vegetables equals 1 cup (91 g) broccoli or cauliflower florets, 2 medium carrots, 2 cups (150 g) raw, leafy greens, 1 large tomato, 1 large bowling pepper, 1 large sweet potato, or 1 medium white potato. Grains Aim to eat 5?10 ounce-equivalents of whole grains each day. Examples of 1 ounce- equivalent of grains include 1 slice of bread, 1 cup (40 g) zjpfv-wp-koc cereal, 3 cups (24 g) popcorn, or ? cup (93 g)cooked rice. Meats and other proteins Try to eat 5?7 ounce-equivalents of protein each day. Examples of 1 ounce- equivalent of protein include 1 egg, ? oz nuts (12 almonds, 24 pistachios, or 7 walnut halves), 1/4 cup (90 g) cooked beans, 6 tablespoons (90 g) hummus or 1 tablespoon (16 g) peanut butter. A cut of meat or fish that is the size of a deck of cards is about 3?4 ounce-equivalents (85 g). Of the protein you eat each week, try to have at least 8 sounce (227 g) of seafood. This is about 2servings per week. This includes salmon, trout, billy, sardines, and anchovies. Dairy Aim to eat 3 cup-equivalents of fat-free or low-fat dairy each day. Examples of 1 cup-equivalent ofdairy include 1 cup (240 mL) milk, 8 ounces (250 g) yogurt, 1? ounces (44 g) natural cheese, or 1 cup (240 mL) fortified soy milk. Fats and oils Aim for about 5 teaspoons (21 g) of fats and oils per day. Choose monounsaturated fats, such as canola and olive oils, mayonnaise made with olive oil or avocado oil, avocados, peanut butter, and mostnuts, or polyunsaturated fats, such as sunflower, corn, and soybean oils, walnuts, pine nuts, sesame seeds, sunflower seeds, and flaxseed. Beverages Aim for 6 eight-ounce glasses of water per day. Limit coffee to 3?5 eight-ounce cups per day. Limit caffeinated beverages that have added calories, such as soda and energy drinks. If you drink alcohol: ? Limit how much you have to: ? 0?1 drink a day if you are female. ? 0?2 drinks a day if you are male. ? Know how much alcohol is in your drink. In the [place] one drink is one 12 oz bottle of beer (355 mL), one 5 oz glass of wine (148 mL), or one 1? oz glass of hard liquor (44 mL). Seasoning and other foods Try not to add too much salt to your food. Try using herbs and spices instead of salt. Try not to add sugar to food. This information is based on [place] nutrition guidelines. To learn more, visit chooseIG Guitarsplate.gov. Exact amounts may vary. You may need different amounts. This information is not intended to replace advice given to you by your health care provider. Make sure you discuss any questions you have with your health care provider. Document Released: 2018-11-24 Document Updated: 2023-05-13 Document Reviewed: 2023-05-13 [employer] Patient Education ? 2024 [employer] documented in this encounter Plan of Treatment Scheduled Orders Name Type Priority Associated Diagnoses Orde r Schedule CBC auto differential Lab Routine Annual physical exam Expected: 12/16/2024 (Approximate), Expires: 12/16/2025 Comprehensive Metabolic Panel Lab Routine Annual physical exam Expected: 12/16/2024 (Approximate), Expires: 12/16/2025 TSH W/Reflex to FT4 Lab Routine Annual physical exam Expected: 12/16/2024 (Approximate), Expires: 12/16/2025 HIV-1/2 Antigen and Antibodies, Fourth Generation, with Reflexes Lab Routine Routine screening for STI (sexually transmitted infection) Expected: 12/16/2024 (Approximate), Expires: 12/16/2025 Hepatitis C Antibody with Reflex to HCV, RNA, Quantitative, Real-Time PCR Lab Routine Routine screening for STI (sexually transmitted infection) Expected: 12/16/2024, Expires: 12/16/2025 Syphilis Screen Lab Routine Routine screening for STI (sexually transmitted infection) Expected: 12/16/2024, Expires: 12/16/2025 T-SPOT??.TB Lab Routine Annual physical exam Expected: 12/16/2024 (Approximate), Expires: 12/16/2025 documented as of this encounter Visit Diagnoses Diagnosis Annual physical exam- Primary Routine general medical examination at a health care facility Routine screening for STI (sexually transmitted infection) Screening examination for venereal disease Dietary counseling Dietary surveillance and counseling Exercise counseling Class 3 severe obesity due to excess calories without serious comorbidity with body mass index (BMI) of 45.0 to 49.9 in adult documented in this encounter Additional Health Concerns Assessment Noted Time PHQ-9 Depression Total Score: 0 12/17/19 25 2:28 PM EDT documented as of this encounter Care Teams Police Investigator Relationship Specialty Start Date End Date Jenae Goodman NP [address] [place] [id number] PCP - General Family Medicine 05/31/23 documented as of this encounter
--- OUTSIDE RECORDS SUMMARY | 2024-12-16 17:40 | XMS_ITS | Encounter Summary ---
Author Organization [employer] Address [address] [place] [address] [address] [place] [address] Care Team Providers Care Fish And Wildlife Biologist Name Role Phone Jenae Goodman NP Primary Care Provider [phone] Encounter Details Date Type Department Care Team (Latest Contact Info) Description 12/16/2024 Travel Social History Tobacco Use Types Packs/Day [...] documented as of this encounter Care Teams Fish And Wildlife Biologist Relationship Specialty Start Date End Date Jenae Goodman NP [address] [place] [address] PCP - General Family Medicine 05/31/23 documented as of this encounter
--- OUTSIDE RECORDS SUMMARY | 2024-12-16 17:40 | XMS_ITS | Encounter Summary ---
Author Organization [facility] Address [address] [place] [address] 7 [place] [address] Care Team Providers Care Marine Fireman Name Role Phone Jenae Goodman NP Primary Care Provider [phone] Encounter Details Date Type Department Care Team (Late st Contact Info) Description 06/11/2024 Orders Only [facility] MEDICINE [address] [place] [address] Provider, Historical, Social History Tobacco Use Types [...] on filedocumented in this encounter Care Teams Marine Fireman Relationship Specialty Start Date End Date Jenae Goodman NP [address] [place] [address] PCP - General Family Medicine 05/31/23 documented as of this encounter
--- OUTSIDE RECORDS SUMMARY | 2024-12-16 17:40 | XMS_ITS | Encounter Summary ---
Author Organization [employer] Address [address] [place] [address] 7 [place] [address] Care Team Providers Care Brine Tank Tender Name Role Phone Jenae Goodman NP Primary Care Provider [phone] Reason for Visit * Reason Onset Date Comments Results 12/15/2024 Encounter Details Date Type Department Care Team ([facility] st Contact Info) Description 12/15/2024 Telephone [facility] MEDICINE [address] [place] [address] Rhea Alston FNP [address] [place] [address] Results Social History Tobacco Use Types Packs/Day [...] Telephone Encounter - Rosario James RN - 12/15/2024 1:41 PM EDT Call placed to patient. Unable to leave voicemail, box full. Will re-task for re-attempt. ----- Message from Rhea Alston sent at 12/15/2024 1:40 PM EDT ----- Can you please let Sariah know her test came back positive for BV and I have sent antibiotics to her her pharmacy on record [facility] Thank you documented in this encounter Plan of Treatment Not on file documented as of this encounter Visit Diagnoses Not on filedocumented in this encounter Care Teams Brine Tank Tender Relationship Specialty Start Date End Date Jenae Goodman NP [address] [place] [address] PCP - General Family Medicine 05/31/23 documented as of this encounter
--- OUTSIDE RECORDS SUMMARY | 2024-12-16 17:40 | XMS_ITS | Clinical Summary ---
Author Organization 175 [facility] Address [address] [place] [address] Phone Care Team Providers Care Business Unit Controller Name Role Phone Physician, Pcp Unknown Primary [...] PM EST Office Visit [facility] [place] [address] [address] Jaun Barry, DPM Cellulitis of [...] to complete this topic Insurance MEDICAID - [place] Care Teams Business Unit Controller Relationship Specialty Start Date End Date Physician, Pcp Unknown PCP - General 07/22/24
--- OUTSIDE RECORDS SUMMARY | 2024-12-16 17:40 | XMS_ITS | Clinical Summary ---
Author Organization [employer] Address [address] [place] [address] 7 [place] [address] Care Team Providers Care Head Of Partner Development Name Role Phone Jenae Goodman NP Primary Care Provider [phone] Allergies No known active allergies Medications acetaminophen (Tylenol) 325 MG tablet 2 tablet by Oral route every 4 to 6 hours prn fever or pain 6 Active dexAMETHasone (Maxidex) 0.1 % ophthalmic suspension Instill 3-4 drops into ear canal 2-3 times a day, reduce dose gradually after ear inflammation and pruritis improves. Repeat as necessary 2 Active fluconazole (Diflucan) 150 MG tabletIndicati ons:Yeast infection Take one tablet then after 72 hrs take another tablet 2 tablet 4 Active metroNIDAZOLE (Flagyl) 500 MG tabletIndicati ons:UTI symptoms Take 1 tablet (500 mg) by mouth 2 times daily for 7 days. 14 tablet 5 025 Active selenium sulfide (Selsun) 2.5 % shampooIndicat ions:Seborrhei c dermatitis Lather in to scalp twice a week while in shower, leave on 5 minutes and rinse 118 mL 2 4 025 Discontin ued(Thera py completed ) Vit-Fe Fumarate-FA ( Vitamins) 28-0.8 MG tabletIndicati ons:Family Planning Take 1 tablet by mouth Once per day. 90 tablet 3 4 025 Discontin ued(Thera py completed ) betamethasone valerate (Valisone) 0.1 % lotionIndicati ons:Seborrheic dermatitis Apply topically 2 times daily. For 1 week 60 mL 1 025 Discontin ued(Debbie wills completed ) Active Problems Problem Noted Date Diagnosed Date [...] Encounters Date Type Department Care Team Description 12/16/2024 2:45 PM EDT Office Visit [facility] MED & PEDS [address] [place] [address] Sulema Cantrell MD Annual physical exam (Primary Dx); Routine screening for STI (sexually transmitted infection); Dietary counseling; Exercise counseling; Class 3 severe obesity due to excess calories without serious comorbidity with body mass index (BMI) of 45.0 to 49.9 in adult 12/16/2024 Travel 12/16/[address] [address] Rhea Alston FNP Results 12/15/[address] [address] Rhea Alston FNP Results 12/11/2024 3:00 PM EDT Office Visit [address] [place] [address] Rhea Alston FNP UTI symptoms (Primary Dx) 12/11/2024 Telephone [facility] MEDICINE [address] [place], [place] [phone] Rhea Alston FNP Per Mo 12/11/2024 Travel 12/09/2024 Telephone [facility] MEDICINE [address] [place], [place] [phone] Jenae Goodman NP Nurse Triage 11/06/2024 Population Health Risk Score [facility] ([facility]) Department [address] [place] [phone] Provider, Population Health Generic 10/08/2024 Telephone [facility] MEDICINE [address] [place], [place] [phone] Kimberly Alas RN from Last 3 Months [...] Mass Index 45.73 12/16/2024 2:27 PM EDT Plan of Treatment Health Maintenance Due Date Last Done Comments SDOH Screening 1999 Family Planning (PISQ) 2014 Dental Oral Exam 06/16/2021 12/14/2020, 07/2018, 04/07/2015, Additional history exists Dental Prophylaxis 06/16/2021 12/14/2020, 1 09/06/2017, 04/07/2015, Additional history exists Dental X-Ray: Bitewings 12/15/2021 12/15/19 21, 07/07/2018, 04/07/2015, Additional history exists Dental X-Ray: Full Mouth 12/16/2023 12/14/2020, 04/27 COVID-19 Vaccine ( season) 2024 05/31/2022, 10/26/2021, 10/05/2021 Influenza Vaccine (#1) 2024 , 09/20/2017, 04/30/2013 HPV/Cotest 12/15/2024 Pap Smear 12/15/2024 12/15/2021 Alcohol/Substance Use Screening 12/16/2025 12/16/2024 Depression Screening 12/16/2025 12/16/2024, 12/17/19 Tobacco Screening 12/16/2025 12/16/2024 Lipid Panel 11/24/2028 11/25/2023, 07/11/2022 DTaP/Tdap/Td Vaccines (7 - Td or Tdap) [...] Routine 12/11/2024 3:18 PM EDT UTI symptoms BACTERIAL VAGINOSIS PANEL Routine 12/11/2024 12:00 AM EDT UTI symptoms CHLAMYDIA/N. GONORRHOEAE RNA, TMA, UROGENITAL Routine 12/11/2024 12:00 AM EDT UTI symptoms HEPATITIS C AB W/REFL TO HCV RNA, QN, PCR Routine 11/25/2023 12:02 PM EDT Routine screening for STI (sexually transmitted infection) HIV 1/2 ANTIGEN/ANTIBODY, FOURTH GENERATION W/RFL Routine 11/25/2023 12:02 PM EDT Routine screening for STI (sexually transmitted infection) LIPID PANEL, STANDARD Routine 11/25/2023 12:02 PM EDT Abnormal uterine bleeding (AUB) HM PAP/HPV Routine 12/15/2021 2:55 PM EDT [...] Media Lot # [id number] Lot# Expiration Date [id number] Urine 12/11/2024 3:18 PM EDT [employer] POINT OF CARE TEST ENTER/EDIT ORDERABLES Final Result * (ABNORMAL) Bacterial Vaginosis Panel (12/11/2024 12:00 AM EDT) TRICHOMONAS VAGINALIS DETECTION BY PCR NOT DETECTED Not Detect [facility] BACTERIAL VAGINOSIS DETECTION BY PCR POSITIVE(A) Negative [facility] Comment:The BV organism targ ets of the Xpert Xpress MVP test can becommensal in women; Xpert Xpress MVP positive results forbacterial vaginosis should be considered in conjunction withother clinical and patient information to determine thedisease status. Organisms that are not detected by the XpertXpress MVP test have also been reported to be associatedwith BV and aerobic vaginitis.The Xpert Xpress MVP test performance has not been evaluatedin patients under the age of 14. BROOKE GROUP DETECTION BY PCR NOT DETECTED Not Detect [facility] Brooke glab krusei PCR NOT DETECTED Not Detect [facility] Swab Vaginal structure / Unknown 12/11/2024 12/11/2024 Exo Protein Bars [facility] MICROBIOLOGY - GENERAL ORD ERABLES Final Result [facility] [address] [place] [phone] * Chlamydia/N. Gonorrhoeae RNA, TMA, Urogenitial (12/11/2024 12:00 AM EDT) CT PCR NOT DETECTED Not Detect. [facility] Comment:A not detected test result does not exclude the possibilityof infection because test results can be affected byimproper specimen collection, concurrent antibiotic therapy,or the number of organisms in the specimen which may bebelow the sensitivity of the test. As with many diagnostictests, results from the Xpert CT/NG assay should beinterpreted in conjunction with other laboratory andclinical data available to the clinician.Xpert CT/NG performance has not been evaluated in patientsless than 14 years of age. The assay should not be used forthe evaluationof suspected sexual abuse or for other medico-legalindications. Additional testing is recommended in anycircumstance when false positive or false negative resultscould lead to adverse medical, social or psychologicalconsequences. NG PCR NOT DETECTED Not Detect. [facility] Comment:A not detected test result does not exclude the possibilityof infection because test results can be affected byimproper specimen collection, concurrent antibiotic therapy,or the number of organisms in the specimen which may bebelow the sensitivity of the test. As with many diagnostictests, results from the Xpert CT/NG assay should beinterpreted in conjunction with other laboratory andclinical data available to the clinician.Xpert CT/NG performance has not been evaluated in patientsless than 14 years of age. The assay should not be used forthe evaluationof suspected sexual abuse or for other medico-legalindications. Additional testing is recommended in anycircumstance when false positive or false negative resultscould lead to adverse medical, social or psychologicalconsequences. Urine (Urine, Random) 12/11/2024 12/11/2024 Narrative [facility] - 12/12/2024 2:35 AM EDT Urine Rhea KABA LAB MICROBIOLOGY - GENERAL ORD ERABLES Final Result [facility] [address] [place] [phone] * Hepatitis C Antibody with Reflex to HCV, RNA, Quantitative, Real-Time PCR (11/25/2023 12:02 PM EDT) Hepatitis C Antibody Nonreactive Nonreactive [facility] Comment:Antibodies to HCV no t detected; does not exclude early acuteHCV infection. Blood Venous blood specimen / Unknown 11/25/2023 12:02 PM EDT 11/25/2023 1:16 PM EDT Jenae Goodman NP LAB BLOOD ORDERABLES Final Resu lt Performing Organization Address [facility]/ZIP Co de Phone Number [facility] [address] [place] [address] [phone] * HIV-1/2 Antigen and Antibodies, Fourth Generation, with Reflexes (11/25/2023 12:02 PM EDT) HIV AB/AG Nonreactive Nonreactive [facility] Comment:HIV-1 p24 Ag and/or HIV-1/HIV-2 Ab not detected.A test result that is nonreactive does not exclude thepossibility of exposure to or infection with HIV-1 and/orHIV-2. Nonreactive results in this assay for individualswith prior exposure to HIV-1 and/or HIV-2 may be due toantigen and antibody levels that are below the limit ofdetection of this assay.The [email or web address] HIV Ag/Ab Combo assay result andsupplemental assay results should be interpreted inconjunction with the patient's clinical presentation,history and other laboratory results. If the results areinconsistent with clinical evidence, additional testing issuggested to confirm the result. Blood Venous blood specimen / Unknown 11/25/2023 12:02 PM EDT 11/25/2023 1:16 PM EDT Jenae Goodman NP LAB BLOOD ORDERABLES Final Resu lt Performing Organization Address [facility] Co de Phone Number [facility] [address] [place] [address] [phone] * (ABNORMAL) Lipid Panel, Standard (11/25/2023 12:02 PM EDT) Triglycerides 90 <150 mg/dL [facility] Comment:Desirable Triglyceri de: less than 150 mg/dLBorderline High Triglyceride 150-199 mg/dLHigh Triglyceride: 200-499 mg/dLVery High Triglyceride: greater than or equal to 5OO mg/dL Cholesterol 166 <200 mg/dL [facility] Comment:Desirable Cholestero l: less than 200 mg/dLBorderline High Cholesterol: 200-239 mg/dLHigh Cholesterol: greater than 239 mg/dL LDL Cholesterol Calculated 109(H) <100 mg/dL [facility] Comment:Desirable LDL: less than 100 mg/dLNear Optimal/Above Optimal LDL: 110- 129 mg/dLBorderline High LDL: 130-159 mg/dLHigh LDL: 160-189 mg/dLVery High LDL: greater than or equal to 190 mg/dL HDL Cholesterol 39(L) >40 mg/dL [facility] Comment:Desirable HDL: great er than 40 mg/dL Note: This HDL assay may give artificially low results in patients with liver disease. Blood Venous blood specimen / Unknown 11/25/2023 12:02 PM EDT 11/25/2023 1:16 PM EDT Jenae Goodman HAT CHECKER LAB BLOOD ORDERABLES Final Resu lt [facility] [address] [place] [address] [phone] * PAP/HPV (12/15/2021 2:55 PM EDT) Historical Provider HEALTH MAINTENANCE Final Result from Last 3 Months or Most Recently Relevant to Health Maintenance [place] [address] [place] [address] C[place] ST[place] AD[place] Care Teams Head Of Partner Development Relationship Specialty Start Date End Date Jenae Goodman NP [address] [place] [phone] PCP - General Family Medicine 05/31/23
--- OUTSIDE RECORDS SUMMARY | 2024-12-16 17:40 | XMS_ITS | Encounter Summary ---
Author Organization [employer] Address [address] [place] [address] 7 [place] [address] Care Team Providers Care Ordnance Truck Installation Supervisor Name Role Phone Jenae Goodman NP Primary Care Provider [phone] Reason for Visit * Reason Onset Date Comments Nurse Triage 03/17/2024 Encounter Details Date Type Department Care Team (Late st Contact Info) Description 03/17/2024 Telephone [facility] MEDICINE [address] [place] [address] Jenae Goodman NP [address] [place] [address] Nurse Triage Social History Tobacco Use Types [...] on filedocumented in this encounter Care Teams Ordnance Truck Installation Supervisor Relationship Specialty Start Date End Date Jenae Goodman NP [address] [place] [address] PCP - General Family Medicine 05/31/23 documented as of this encounter
--- OUTSIDE RECORDS SUMMARY | 2024-12-16 17:40 | XMS_ITS | Encounter Summary ---
Author Organization [employer] Address [address] [place] [address] 7 [place] [address] Care Team Providers Care Machine Sign Writer Name Role Phone Jenae Goodman NP Primary Care Provider [phone] Encounter Details Date Type Department Care Team [...] on filedocumented in this encounter Care Teams Machine Sign Writer Relationship Specialty Start Date End Date Jenae Goodman NP [address] [place] [address] PCP - General Family Medicine 05/31/23 documented as of this encounter
--- OUTSIDE RECORDS SUMMARY | 2024-12-16 17:40 | XMS_ITS | Encounter Summary ---
Author Organization [employer] Address [address] [place] [address] 7t [place] [address] Care Team Providers Care Divinity Teacher Name Role Phone Jenae Goodman NP Primary Care Provider [phone] Encounter Details Date Type Department Care Team (Late st Contact Info) Description 12/11/2024 3:00 PM EDT Office Visit [facility] MEDICINE [address] [place] [address] Rhea Alston FNP [address] [place] [address] UTI symptoms (Primary Dx) Social History Tobacco [...] Routine 12/11/2024 12:00 AM EDT UTI symptoms documented in this encounter [...] Media Lot # [id number] Lot# Expiration Date [id number] Urine 12/11/2024 3:18 PM EDT [facility] POINT OF CARE TEST ENTER/EDIT ORDERABLES Final Result * (ABNORMAL) Bacterial Vaginosis Panel (12/11/2024 12:00 AM EDT) TRICHOMONAS VAGINALIS DETECTION BY PCR NOT DETECTED Not Detect [facility] BACTERIAL VAGINOSIS DETECTION BY PCR POSITIVE(A) Negative [facility] Comment:The BV organism targ ets [...] DETECTION BY PCR NOT DETECTED Not Detect [facility] Brooke glab krusei PCR NOT DETECTED Not Detect [facility] Swab Vaginal structure / Unknown 12/11/2024 12/11/2024 Rheavalentina Hullgerri [facility] MICROBIOLOGY - GENERAL ORD ERABLES Final Result [facility] [address] [place] [address] [phone] * Chlamydia/N. Gonorrhoeae RNA, TMA, Urogenitial (12/11/2024 12:00 AM EDT) CT PCR NOT DETECTED Not Detect. [facility] Comment:A not detected test result [...] psychologicalconsequences. NG PCR NOT DETECTED Not Detect. [facility] Comment:A not detected test result [...] psychologicalconsequences. Urine (Urine, Random) 12/11/2024 12/11/2024 Narrative [facility] - 12/12/2024 2:35 AM EDT Urine us Rhea Alston V[employer]UNTEER [employer]RE [employer] LAB MICROBIOLOGY - GENERAL ORD ERABLES Final Result [facility] [address] [place] [phone] [phone] documented in this encounter Visit Diagnoses Diagnosis UTI symptoms- Primary documented in this encounter Care Teams Divinity Teacher Relationship Specialty Start Date End Date Jenae Goodman NP [address] [place] [address] PCP - General Family Medicine 05/31/23 documented as of this encounter
--- OUTSIDE RECORDS SUMMARY | 2024-12-16 17:40 | XMS_ITS | Encounter Summary ---
Author Organization [employer] Address [address] [place] [address] 7 [place] [address] Care Team Providers Care Certified Health Education Specialist Name Role Phone Vesta Casper Primary Care Provider [phone] Jenae Goodman NP Primary Care Provider [phone] Encounter Details Date Type Department Care Team (Latest Contact Info) Description 12/14/2020 Abstract [facility] CONVERSIONS Dental, Provider, DDS Social History Tobacco [...] on filedocumented in this encounter Care Teams Certified Health Education Specialist Relationship Specialty Start Date End Date Vesta Casper FNP PCP - General Family Medicine 02/21/22 05/30/23 Jenae Goodman NP [address] [place] [address] PCP - General Family Medicine 05/31/23 documented as of this encounter
[2024-12-16 17:49] LABS: MANUAL DIFF FLAG NO
[2024-12-16 18:00] LABS: Basophils Absolute Auto 0.1 X10*3/uL (0.0-0.2); Basophils Percent Auto 0.5 % (0-2); Eosinophils Absolute Auto 0.2 X10*3/uL (0.0-0.4); Eosinophils Percent Auto 1.4 % (0-4); Hemoglobin 12.6 g/dl (12.0-16.0); Imm Gran Abs Auto 0.07 X10*3/uL (0.00-0.03); Imm Gran Pct Auto 0.5 % (0.0-0.4); Lymphocytes Absolute Auto 2.8 X10*3/uL (1.2-4.9); Lymphocytes Percent Auto 21.4 % (20-40); Mean Corpuscular HGB Conc 32.3 g/dl (31.0-35.0); Mean Corpuscular Hemoglobin 27.6 pg (27.0-33.0); Mean Corpuscular Volume 85.5 fL (80.0-98.0); Monocytes Absolute Auto 0.8 X10*3/uL (0.1-1.2); Monocytes Percent Auto 6.3 % (2-11); Neutrophils Absolute Auto 9.3 x10*3/uL (2.0-8.3); Neutrophils Percent Auto 69.9 % (45-73); Platelet Count 415 X10*3/uL (160-400); Red Blood Count 4.56 X10*6/uL (4.20-5.50); Red Cell Distribution Width 14.2 % (11.0-16.0); White Blood Count 13.3 X10*3/uL (4.8-10.8)
[2024-12-16 18:20] LABS: Alanine Aminotransferase 29 U/L (0-31); Albumin Level 4.3 g/dL (3.5-5.0); Alkaline Phosphatase 75 U/L (39-117); Anion Gap 13 (12-20); Aspartate Amino Transferase 26 U/L (5-31); Bilirubin Total 0.3 mg/dL (0.0-1.0); Blood Urea Nitrogen 13 mg/dL (9-16); Calcium 9.5 mg/dL (8.4-10.2); Carbon Dioxide 26 mmol/L (22-29); Chloride 105 mmol/L (96-108); Estimated Glomerular Filt Rate > 60; Glucose Random 122 mg/dL (60-115); Potassium 3.7 mmol/L (3.3-5.1); Sodium 140 mmol/L (135-145); Total Protein 7.2 g/dL (6.5-8.0)
[2024-12-16 18:37] LABS: TSH reflex Free T4 0.72 uIU/mL (0.32-4.0)
[2024-12-17 03:54] LABS: Syphilis Screen Nonreactive (Nonreactive)
[2024-12-17 04:10] LABS: HIV AB/AG Nonreactive (Nonreactive); HIV Num 1 0.07 S/CO (0.00-0.99); ~HepC Num1 0.08 S/CO (0.00-0.79); ~Hepatitis C Antibody Nonreactive (Nonreactive)
[2024-12-18 22:29] LABS: TS Negative Control Passed; TS Panel A 0; TS Panel B 1; TS Positive Control Passed; TSpotTB Negative (Negative)
== END 2024-12-16 14:50 | disposition home or self-care (01) ==
LOC: HO.CHCLDS 14:49
PROVIDERS: Visit Provider Internal Medicine
DX: Z00.00 Encounter for general adult medical examination without abnormal findings (principal); Z11.3 Encounter for screening for infections with a predominantly sexual mode of transmission; Z11.4 Encounter for screening for human immunodeficiency virus [HIV]; Z11.59 Encounter for screening for other viral diseases; Z11.1 Encounter for screening for respiratory tuberculosis; Z13.29 Encounter for screening for other suspected endocrine disorder
CPT/HCPCS: 36415; 80053; 84443; 85025; 86481; 86780; 86803; 87389

== ENCOUNTER 2024-12-24 10:18 | Outpatient (REF) | payer MEDICAID, SELFPAY ==
[2024-12-24 11:28] LABS: MANUAL DIFF FLAG NO
[2024-12-24 11:32] LABS: Basophils Absolute Auto 0.1 X10*3/uL (0.0-0.2); Basophils Percent Auto 0.4 % (0-2); Eosinophils Absolute Auto 0.3 X10*3/uL (0.0-0.4); Eosinophils Percent Auto 2.5 % (0-4); Hemoglobin 13.3 g/dl (12.0-16.0); Imm Gran Abs Auto 0.05 X10*3/uL (0.00-0.03); Imm Gran Pct Auto 0.4 % (0.0-0.4); Lymphocytes Absolute Auto 2.4 X10*3/uL (1.2-4.9); Mean Corpuscular HGB Conc 31.7 g/dl (31.0-35.0); Mean Corpuscular Hemoglobin 27.4 pg (27.0-33.0); Mean Corpuscular Volume 86.4 fL (80.0-98.0); Mean Platelet Volume 10.1 fL (9.4-12.3); Monocytes Percent Auto 8.6 % (2-11); Neutrophils Absolute Auto 7.8 x10*3/uL (2.0-8.3); Neutrophils Percent Auto 67.1 % (45-73); Platelet Count 420 X10*3/uL (160-400); Red Blood Count 4.86 X10*6/uL (4.20-5.50); Red Cell Distribution Width 14.3 % (11.0-16.0); White Blood Count 11.6 X10*3/uL (4.8-10.8)
--- OUTSIDE RECORDS SUMMARY | 2024-12-24 11:44 | XMS_ITS | Encounter Summary ---
Author Organization [facility] Address [address] [place] [address], [place] [address] Care Team Providers Care Cuprous Chloride Operator Name Role Phone Vesta Casper Primary Care Provider [phone] Jenae Goodman NP Primary Care Provider [phone] Encounter Details Date Type Department Care Team (Latest Contact Info) Description 12/14/2020 Abstract [facility] CONVERSIONS Dental, Provider, DDS Social History [...] as of this encounter Plan of Treatment Upcoming Encounters Date Type Department Care Team ( st Contact Info) Description 03/15/2025 1:45 PM EDT Office Visit [facility] MEDICINE [address] [place] [address] Jenae Goodman NP [address] [place] [address] documented as of this encounter Visit Diagnoses Not on filedocumented in this encounter Care Teams Cuprous Chloride Operator Relationship Specialty Start Date End Date Vesta Casper FNP PCP - General Family Medicine 02/21/22 05/30/23 Jenae Goodman NP [address] [place] [address] PCP - General Family Medicine 05/31/23 documented as of this encounter
--- OUTSIDE RECORDS SUMMARY | 2024-12-24 11:44 | XMS_ITS | Clinical Summary ---
Author Organization 175 [facility] Address [address] [place] [address] Phone Care Team Providers Care Meteorological Aide Name Role Phone Physician, Pcp Unknown Primary [...] 07/17/2024 Fungal toenail infection 07/17/2024 Cellulitis 07/17/2024 Social History Tobacco Use Types Packs/Day Years [...] to complete this topic Insurance MEDICAID - [place] Care Teams Meteorological Aide Relationship Specialty Start Date End Date Physician, Pcp Unknown PCP - General 07/22/24
--- OUTSIDE RECORDS SUMMARY | 2024-12-24 11:44 | XMS_ITS | Clinical Summary ---
Author Organization [employer] Address [address] [place] [address] 7 [place] [address] Care Team Providers Care Manager Project Management Name Role Phone Jenae Goodman NP Primary Care Provider [phone] Allergies No known active allergies Medications acetaminophen (Tylenol) 325 MG tablet 2 tablet by Oral route every 4 to 6 hours prn fever or pain 01/16/20 16 Active dexAMETHasone (Maxidex) 0.1 % ophthalmic suspension Instill 3-4 drops into ear canal 2-3 times a day, reduce dose gradually after ear inflammation and pruritis improves. Repeat as necessary 07/21/20 22 Active fluconazole (Diflucan) 150 MG tabletIndicati ons:Yeast infection Take one tablet then after 72 hrs take another tablet 2 tablet 02/14/20 24 Active sulfamethoxazo le-trimethopri m (Bactrim DS) 800-160 MG tablet Take 1 tablet by mouth 2 times daily for 3 days. 6 tablet 12/25/19 25 025 Active cetirizine (ZyrTEC) 10 MG tablet Take 1 tablet (10 mg) by mouth Once per day. 30 tablet 3 12/25/19 25 026 Active fluticasone (Flonase) 50 MCG/ACT nasal spray Administer 2 sprays into each nostril Once per day. Shake gently. Before first use, prime pump. After use, clean tip and replace cap. 16 g 3 12/25/19 25 026 Active Ketotifen Fumarate (Alaway) 0.035 % solution Administer 1 drop into affected eye(s) if needed in the morning and at bedtime (eye itching). 10 mL 3 12/25/19 25 Active selenium sulfide (Selsun) 2.5 % shampooIndicat ions:Seborrhei c dermatitis Lather in to scalp twice a week while in shower, leave on 5 minutes and rinse 118 mL 2 06/23/20 24 025 Discontinu ed(Therapy completed) Vit-Fe Fumarate-FA ( Vitamins) 28-0.8 MG tabletIndicati ons:Family Planning Take 1 tablet by mouth Once per day. 90 tablet 3 06/23/20 24 025 Discontinu ed(Therapy completed) betamethasone valerate (Valisone) 0.1 % lotionIndicati ons:Seborrheic dermatitis Apply topically 2 times daily. For 1 week 60 mL 1 06/23/20 24 025 Discontinu ed(Therapy completed) metroNIDAZOLE (Flagyl) 500 MG tabletIndicati ons:BV (bacterial vaginosis) Take 1 tablet (500 mg) by mouth 2 times daily for 7 days. 14 tablet 12/16/19 25 025 Active Problems Problem Noted Date Diagnosed Date BV (bacterial vaginosis) 12/17/2024 UTI symptoms 12/17/2024 Trying to get 06/23/2024 Assessment & Plan [...] Encounters Date Type Department Care Team Description 12/24/2024 11:00 AM EDT Office Visit [facility] [address] [place] [phone] Acute UTI (Primary Dx); Seasonal allergic rhinitis, unspecified trigger 12/18/2024 Telephone [facility] [address] [place] [address] Sulema Cantrell MD Results 12/18/2024 Orders Only [facility] [address] [place] [address] Sulema Cantrell MD Other elevated white blood cell (WBC) count (Primary Dx) 12/16/2024 2:45 PM EDT Office Visit [facility] [address] [place] [address] Sulema Cantrell MD Annual physical exam (Primary Dx); Routine screening for STI (sexually transmitted infection); Dietary counseling; Exercise counseling; Class 3 severe obesity due to excess calories without serious comorbidity with body mass index (BMI) of 45.0 to 49.9 in adult 12/16/2024 Travel 12/16/[address] [address] Rhea Alston FNP Results 12/15/[address] [address] Rhea Alston FNP Results 12/11/2024 3:00 PM EDT Office Visit [address] [address] Rhea Alston, [employer] UTI symptoms (Primary Dx); BV (bacterial vaginosis) 12/11/[address] [address] Rhea Alston FNP Per Mo 12/11/2024 Travel 12/09/[address] [address] Jenea Goodman NP Nurse Triage 11/06/2024 Population Health Risk Score [facility] () Department [address] [place] [phone] Provider, Population Health Generic 10/08/2024 Telephone [facility] [address] [place] [address] Kimberly Alas RN from Last 3 Months [...] Sign Reading Time Taken Comments Blood Pressure 125/81 12/24/2024 10:38 AM EDT Pulse 88 12/24/2024 10:38 AM EDT Temperature 36.7 ??C (98 ??F) 12/24/2024 10:38 AM EDT Respiratory Rate 20 12/24/2024 10:38 AM EDT Oxygen Saturation 97% 12/24/2024 10:38 AM EDT Inhaled Oxygen Concentration - - Weight 113 kg (248 lb 12.8 oz) 12/24/2024 10:38 AM EDT Height 157.5 cm (5' 2 ) 12/16/2024 2:27 PM EDT Body Mass Index 45.51 12/16/2024 2:27 PM EDT Plan of Treatment Upcoming Encounters Date Type Department Care Team (Late st Contact Info) Description 03/15/2025 1:45 PM EDT Office Visit [facility] [address] [place] [address] Jenae Goodman NP [address] [place] [address] Health Maintenance Due Date Last Done Comments [...] Vaccine Completed 06/10/2015, 013 HIV Screening Completed 12/16/2024, 040 08/2023, 07/11/2022, Additional history exists Hepatitis C Screening Completed 12/16/2024 , 11/25/2023, 07/11/2022, Additional history exists Pneumococcal Vaccine: Pediatrics (0 to 5 Years) [...] Associated Diagnosis Comments POCT URINALYSIS DIPSTICK Routine 12/24/2024 11:04 AM EDT Acute UTI CBC WITH AUTO DIFFERENTIAL Routine 12/24/2024 10:23 AM EDT Other elevated white blood cell (WBC) count T-SPOT(R).TB Routine 12/16/2024 2:57 PM EDT Annual physical exam SYPHILIS SCREEN Routine 12/16/2024 2:51 PM EDT Routine screening for STI (sexually transmitted infection) HEPATITIS C AB W/REFL TO HCV RNA, QN, PCR Routine 12/16/2024 2:51 PM EDT Routine screening for STI (sexually transmitted infection) HIV 1/2 ANTIGEN/ANTIBODY, FOURTH GENERATION W/RFL Routine 12/16/2024 2:51 PM EDT Routine screening for STI (sexually transmitted infection) TSH W/REFLEX TO FT4 Routine 12/16/2024 2 :51 PM EDT Annual physical exam COMPREHENSIVE METABOLIC PANEL Routine 12/16/2024 2:51 PM EDT Annual physical exam CBC WITH AUTO DIFFERENTIAL Routine 12/16/2024 2:51 PM EDT Annual physical exam POCT URINALYSIS DIPSTICK Routine 12/11/2024 3:18 PM EDT UTI symptoms BACTERIAL VAGINOSIS PANEL Routine 12/11/2024 12:00 AM EDT UTI symptoms CHLAMYDIA/N. GONORRHOEAE RNA, TMA, UROGENITAL Routine 12/11/2024 12:00 AM EDT UTI symptoms LIPID PANEL, STANDARD Routine 11/25/2023 12:02 PM [...] Relevant to Health Maintenance Results * POCT urinalysis dipstick manually resulted (12/24/2024 11:04 AM EDT) Only the most recent of2 resultswithin the time period is included. Pathologist [facility] Color, UA Yellow Clarity, UA Clear Glucose, UA Negative Bilirubin, UA Negative Ketones, UA Positive Comment:Trace Spec Grav, UA 1.025 Blood, UA Negative Negative, None Detected pH, UA 6.5 Protein, UA Trace Urobilinogen, UA 0.2 Leukocytes, UA Trace Negative, Rare, Trace Nitrite, UA Negative Negative, None Detected Urine 12/24/2024 11:0 4 AM EDT Karena Kerns DO POINT OF CARE TEST ENTER/JUAN T ORDERABLES Final Result * (ABNORMAL) CBC auto differential (12/24/2024 10:23 AM EDT) Only the most recent of2 resultswithin the time period is included. White Blood Count 11.6(H) 4.8 - 10.8 X10*3/uL [facility] Red Blood Count 4.86 4.20 - 5.50 X10*6/uL [facility] Hemoglobin 13.3 12.0 - 16.0 g/dl [facility] Hematocrit 42.0 37.0 - 47.0 % [facility] Mean Corpuscular Volume 86.4 80.0 - 98.0 fL [facility] Mean Corpuscular Hemoglobin 27.4 27.0 - 33.0 pg [facility] Mean Corpuscular HGB Conc 31.7 31.0 - 35.0 g/dl [facility] Red Cell Distribution Width 14.3 11.0 - 16.0 % [facility] Platelet Count 420(H) 160 - 400 X10*3/uL [facility] Mean Platelet Volume 10.1 9.4 - 12.3 fL [facility] Neutrophils Percent Auto 67.1 45 - 73 % [facility] Imm Gran Pct Auto 0.4 0.0 - 0.4 % [facility] Lymphocytes Percent Auto 21.0 20 - 40 % [facility] Monocytes Percent Auto 8.6 2 - 11 % [facility] Eosinophils Percent Auto 2.5 0 - 4 % [facility] Basophils Percent Auto 0.4 0 - 2 % [facility] NRBC Pct Auto 0.0 0.0 - 0.2 /100WBC [facility] Neutrophils Absolute Auto 7.8 2.0 - 8.3 x10*3/uL [facility] Imm Gran Abs Auto 0.05(H) 0.00 - 0.03 X10*3/uL [facility] Lymphocytes Absolute Auto 2.4 1.2 - 4.9 X10*3/uL [facility] Monocytes Absolute Auto 1.0 0.1 - 1.2 X10*3/uL [facility] Eosinophils Absolute Auto 0.3 0.0 - 0.4 X10*3/uL [facility] Basophils Absolute Auto 0.1 0.0 - 0.2 X10*3/uL [facility] NRBC Abs Auto 0.000 0.0 - 0.012 X10*3/uL [facility] Blood Venous blood specimen / Unknown 12/24/2024 10:23 AM EDT 12/24/2024 11:23 AM EDT us Sulema Cantrell MD LAB BLOOD ORDERABLES Final Result [facility] [address] [place] [phone] * T-SPOT??.TB (12/16/2024 2:57 PM EDT) T Spot TB Negative Negative [facility] Comment:A negative test resu lt does not exclude the possibilityof exposure to or infection with Mycobacteriumtuberculosis (M. tuberculosis). Patients with recentexposure to TB infected individuals exhibiting anegative T-SPOT.TB result should be considered forretesting within 6 weeks or if other relevant clinicalsymptoms indicate. Results from T-SPOT.TB testing mustbe used in conjunction with each individual'sepidemiological history, current medical status,and results of other diagnostic evaluations.The T-SPOT.TB test is qualitative and results arereported as positive, borderline, or negative, giventhat the test controls perform as expected. In linewith the Centers for Disease Control and Prevention's2010 recommendation to report quantitative measurementsalongside the qualitative result, the laboratoryprovides spot counts for informational purposes only.The T-SPOT.TB test should not be interpreted as aquantitative test. TS PANEL A 0 [facility] TS PANEL B 1 [facility] Negative Control Passed [facility] Positive Control Passed [facility] Comment:For additional infor mation, please refer tohttp://education.Needbox AS/faq/PXU832(This link is being provided for informational/educational purposes only.)THIS TEST WAS PERFORMED AT:[email or web address] [place] [email or web address] JJ MD,PHD 12/16/2024 2:57 PM EDT 12/16/2024 5:45 PM EDT us Sulema Cantrell MD LAB BLOOD ORDERABLES Final Result [facility] [address] [place] [phone] * Syphilis Screen (12/16/2024 2:51 PM EDT) Syphilis Screen Nonreactive Nonreactive [facility] Blood 12/16/2024 2:51 PM EDT 12/16/2024 5:45 PM EDT us Thevenin Beauzile MD LAB BLOOD ORDERABLES Final Result Performing Organization Address [facility]/ZIP Co de Phone Number [facility] [address] [place] [phone] * TSH W/Reflex to FT4 (12/16/2024 2:51 PM EDT) TSH reflex Free T4 0.72 0.32 - 4.0 uIU/mL [facility] Blood Venous blood specimen / Unknown 12/16/2024 2:51 PM EDT 12/16/2024 5:45 PM EDT us Sulema Cantrell MD LAB BLOOD ORDERABLES Final Result Performing Organization Address [facility] Co de Phone Number [facility] [address] [place] [phone] * Hepatitis C Antibody with Reflex to HCV, RNA, Quantitative, Real-Time PCR (12/16/2024 2:51 PM EDT) Pathologist [facility] Hepatitis C Antibody Nonreactive Nonreactive [facility] Comment:Antibodies to HCV no t detected; does not exclude early acuteHCV infection. Blood Venous blood specimen / Unknown 12/16/2024 2:51 PM EDT 12/16/2024 5:45 PM EDT us Sulema Cantrell MD LAB BLOOD ORDERABLES Final Result Performing Organization Address [facility] Co de Phone Number [facility] [address] [place] [phone] * HIV-1/2 Antigen and Antibodies, Fourth Generation, with Reflexes (12/16/2024 2:51 PM EDT) HIV AB/AG Nonreactive Nonreactive [facility] Comment:HIV-1 p24 Ag and/or HIV-1/HIV-2 Ab not detected.A test result that is nonreactive does not exclude thepossibility of exposure to or infection with HIV-1 and/orHIV-2. Nonreactive results in this assay for individualswith prior exposure to HIV-1 and/or HIV-2 may be due toantigen and antibody levels that are below the limit ofdetection of this assay.The QC Corpnity HIV Ag/Ab Combo assay result andsupplemental assay results should be interpreted inconjunction with the patient's clinical presentation,history and other laboratory results. If the results areinconsistent with clinical evidence, additional testing issuggested to confirm the result. Blood Venous blood specimen / Unknown 12/16/2024 2:51 PM EDT 12/16/2024 5:45 PM EDT us Sulema Cantrell MD LAB BLOOD ORDERABLES Final Result [facility] [address] [place] [phone] * (ABNORMAL) Comprehensive Metabolic Panel (12/16/2024 2:51 PM EDT) Sodium 140 135 - 145 mmol/L [facility] Potassium 3.7 3.3 - 5.1 mmol/L [facility] Chloride 105 96 - 108 mmol/L [facility] Carbon Dioxide 26 22 - 29 mmol/L [facility] Anion Gap 13 12 - 20 [facility] Urea Nitrogen (BUN) 13 9 - 16 mg/dL [facility] Creatinine, Serum 0.68 0.5 - 1.4 mg/dL [facility] Estimated Glomerular Filt Rate >60 [facility] Comment:Chronic Kidney Disea se: Estimated GFR < 60 mL/min/[id number] Kidney Disease: Estimated GFR < 15 mL/min/1.73m2 Glucose 122(H) 60 - 115 mg/dL [facility] Calcium 9.5 8.4 - 10.2 mg/dL [facility] Bilirubin, Total 0.3 0.0 - 1.0 mg/dL [facility] Aspartate Amino Transferase 26 5 - 31 U/L [facility] Alanine Aminotransferase 29 0 - 31 U/L [facility] Total Protein 7.2 6.5 - 8.0 g/dL [facility] Albumin Level 4.3 3.5 - 5.0 g/dL [facility] Alkaline Phosphatase 75 39 - 117 U/L [facility] Blood Venous blood specimen / Unknown 12/16/2024 2:51 PM EDT 12/16/2024 5:45 PM EDT us Sulema Cantrell MD LAB BLOOD ORDERABLES Final Result Performing Organization Address [facility] Co de Phone Number [facility] [address] [place] [phone] * (ABNORMAL) Bacterial Vaginosis Panel (12/11/2024 12:00 AM EDT) TRICHOMONAS VAGINALIS DETECTION BY PCR NOT DETECTED Not Detect [facility] BACTERIAL VAGINOSIS DETECTION BY PCR POSITIVE(A) Negative [facility] Comment:The BV organism targ ets [...] DETECTION BY PCR NOT DETECTED Not Detect [facility] Rbooke glab krusei PCR NOT DETECTED Not Detect [facility] Swab Vaginal structure / Unknown 12/11/2024 12/11/2024 us Rhea [facility]EM[facility] LAB MICROBIOLOGY - GENERAL ORD ERABLES Final Result Performing Organization Address [facility] Co de Phone Number [facility] [address] [place] [phone] * Chlamydia/N. Gonorrhoeae RNA, TMA, Urogenitial (12/11/2024 12:00 AM EDT) CT PCR NOT DETECTED Not Detect. [facility] Comment:A not detected test result [...] psychologicalconsequences. NG PCR NOT DETECTED Not Detect. [facility] Comment:A not detected test result [...] psychologicalconsequences. Urine (Urine, Random) 12/11/2024 12/11/2024 Narrative [facility] - 12/12/2024 2:35 AM EDT Urine us Rhea Alston [facility] MICROBIOLOGY - GENERAL ORD ERABLES Final Result [facility] [address] [place] [phone] * (ABNORMAL) Lipid Panel, Standard (11/25/2023 12:02 PM EDT) Triglycerides 90 <150 mg/dL [facility] Comment:Desirable Triglyceri de: less than 150 mg/dLBorderline High Triglyceride 150-199 mg/dLHigh Triglyceride: 200-499 mg/dLVery High Triglyceride: greater than or equal to 5OO mg/dL Cholesterol 166 <200 mg/dL [facility] Comment:Desirable Cholestero l: less than 200 mg/dLBorderline High Cholesterol: 200-239 mg/dLHigh Cholesterol: greater than 239 mg/dL LDL Cholesterol Calculated 109(H) <100 mg/dL [facility] Comment:Desirable LDL: less than 100 mg/dLNear Optimal/Above Optimal LDL: 110- 129 mg/dLBorderline High LDL: 130-159 mg/dLHigh LDL: 160-189 mg/dLVery High LDL: greater than or equal to 190 mg/dL HDL Cholesterol 39(L) >40 mg/dL [facility] Comment:Desirable HDL: great er than 40 mg/dL Note: This HDL assay may give artificially low results in patients with liver disease. Blood Venous blood specimen / Unknown 11/25/2023 12:02 PM EDT 11/25/2023 1:16 PM EDT Jenae Goodman NP LAB BLOOD ORDERABLES Final Resu lt [facility] [address] [place] [phone] [phone] * HM PAP/HPV (12/15/2021 2:55 PM EDT) Historical Provider HEALTH MAINTENANCE Final Result from Last 3 Months or Most Recently Relevant to Health Maintenance Insurance [facility] ST[place] AD[place] Care Teams Manager Project Management Relationship Specialty Start Date End Date Jenae Goodman NP [address] [place] [phone] PCP - General Family Medicine 05/31/23
--- OUTSIDE RECORDS SUMMARY | 2024-12-24 11:44 | XMS_ITS | Encounter Summary ---
Author Organization [employer] [facility] Address [address] [place] [address] [address] [place] [address] Care Team Providers Care Artifacts Conservator Name Role Phone Jenae Goodman NP Primary Care Provider [phone] Encounter Details Date Type Department Care Team (Late st Contact Info) Description 06/11/2024 Orders Only [facility] [address] [place] [phone] Provider, MD [place] Social History Tobacco Use Types Packs/Day Years [...] Description 03/15/2025 1:45 PM EDT Office Visit [facility] [address] [place] [phone] Jenae Goodman NP [address] [place] [address] documented as of this encounter Procedures Procedure Name Priority Date/Time Associated Diagnosis Comments HM PAP/HPV Routine 12/15/2021 2:55 PM EDT documented in this encounter Results * HM PAP/HPV (12/15/2021 2:55 PM EDT) Historical Provider HEALTH MAINTENANCE Final Result documented in this encounter Visit Diagnoses Not on filedocumented in this encounter Care Teams Artifacts Conservator Relationship Specialty Start Date End Date Jenae Goodman NP [address] [place] [phone] PCP - General Family Medicine 05/31/23 documented as of this encounter
--- OUTSIDE RECORDS SUMMARY | 2024-12-24 11:44 | XMS_ITS | Encounter Summary ---
Author Organization [employer] Address [address] [place] [address] [address] [place] [address] Care Team Providers Care Clinical Documentation Clerk Name Role Phone Jenae Goodman NP Primary Care Provider [phone] Encounter Details Date Type Department Care Team ([facility] st Contact Info) Description 12/18/2024 Orders Only [facility] [address] [place] [address] Sulema Cantrell MD [address] [place] [address] Other elevated white blood cell (WBC) count (Primary Dx) Social History Tobacco Use Types [...] Description 03/15/2025 1:45 PM EDT Office Visit [facility] [address] [facility] [place], [place] [phone] Jenae Goodman NP [address] [place], [place] [phone] documented as of this encounter Procedures Procedure Name Priority Date/Time Associated Diagnosis Comments CBC WITH AUTO DIFFERENTIAL Routine 12/24/2024 10:23 AM EDT Other elevated white blood cell (WBC) count documented in this encounter Results * (ABNORMAL) CBC auto differential (12/24/2024 10:23 AM EDT) White Blood Count 11.6(H) 4.8 - 10.8 X10*3/uL [facility] Red Blood Count 4.86 4.20 - 5.50 X10*6/uL [facility] Hemoglobin 13.3 12.0 - 16.0 g/dl [facility] Hematocrit 42.0 37.0 - 47.0 % [facility] Mean Corpuscular Volume 86.4 80.0 - 98.0 fL [facility] Mean Corpuscular Hemoglobin 27.4 27.0 - 33.0 pg [facility] Mean Corpuscular HGB Conc 31.7 31.0 - 35.0 g/dl [facility] Red Cell Distribution Width 14.3 11.0 - 16.0 % [facility] Platelet Count 420(H) 160 - 400 X10*3/uL [facility] Mean Platelet Volume 10.1 9.4 - 12.3 fL [facility] Neutrophils Percent Auto 67.1 45 - 73 % [facility] Imm Gran Pct Auto 0.4 0.0 - 0.4 % [facility] Lymphocytes Percent Auto 21.0 20 - 40 % [facility] Monocytes Percent Auto 8.6 2 - 11 % [facility] Eosinophils Percent Auto 2.5 0 - 4 % [facility] Basophils Percent Auto 0.4 0 - 2 % [facility] NRBC Pct Auto 0.0 0.0 - 0.2 /100WBC [facility] Neutrophils Absolute Auto 7.8 2.0 - 8.3 x10*3/uL [facility] Imm Gran Abs Auto 0.05(H) 0.00 - 0.03 X10*3/uL [facility] Lymphocytes Absolute Auto 2.4 1.2 - 4.9 X10*3/uL [facility] Monocytes Absolute Auto 1.0 0.1 - 1.2 X10*3/uL [facility] Eosinophils Absolute Auto 0.3 0.0 - 0.4 X10*3/uL [facility] Basophils Absolute Auto 0.1 0.0 - 0.2 X10*3/uL [facility] NRBC Abs Auto 0.000 0.0 - 0.012 X10*3/uL [facility] Blood Venous blood specimen / Unknown 12/24/2024 10:23 AM EDT 12/24/2024 11:23 AM EDT Sulema Cantrell MD LAB BLOOD ORDERABLES Final Result [facility] [address] [place] [phone] documented in this encounter Visit Diagnoses Diagnosis Other elevated white blood cell (WBC) count- Primary documented in this encounter Additional Health Concerns Assessment Noted Time PHQ-9 Depression Total Score: 0 12/17/19 25 2:28 PM EDT documented as of this encounter Care Teams Clinical Documentation Clerk Relationship Specialty Start Date End Date Jenae Goodman NP [address] [place] [address] PCP - General Family Medicine 05/31/23 documented as of this encounter
--- OUTSIDE RECORDS SUMMARY | 2024-12-24 11:44 | XMS_ITS | Encounter Summary ---
Author Organization [employer] Address [address] [place] [address] Care Team Providers Care Rotor Balancer Name Role Phone Jenae Goodman NP Primary Care Provider [phone] Reason for Visit * Reason Comments uti symptoms Encounter Details Date Type Department Care Team ([facility] st Contact Info) Description 12/24/2024 11:00 AM EDT Office Visit [facility] [address] [place] [id number] Acute UTI (Primary Dx); Seasonal allergic rhinitis, unspecified trigger Social History Tobacco Use Types Packs/Day Years [...] 12.8 oz) 12/24/2024 10:38 AM EDT Height - - Body Mass Index 45.51 12/16/2024 2:27 PM EDT documented in this encounter Plan of Treatment Upcoming Encounters Date Type Department Care Team (Late st Contact Info) Description 03/15/2025 1:45 PM EDT Office Visit [facility] [address] [place], [place] [phone] Jenae Goodman NP [address] [place], [place] [phone] documented as of this encounter Procedures Procedure Name Priority Date/Time Associated Diagnosis Comments POCT URINALYSIS DIPSTICK Routine 12/24/2024 11:04 AM EDT Acute UTI documented in this encounter Results * POCT urinalysis dipstick manually resulted (12/24/2024 11:04 AM EDT) Color, UA Yellow Clarity, UA Clear [...] CARE TEST ENTER/JUAN T ORDERABLES Final Result documented in this encounter Visit Diagnoses Diagnosis Acute UTI- Primary Urinary tract infection, site not specified Seasonal allergic rhinitis, unspecified trigger documented in this encounter Additional Health Concerns Assessment Noted Time PHQ-9 Depression Total Score: 0 12/17/19 25 2:28 PM EDT documented as of this encounter Care Teams Rotor Balancer Relationship Specialty Start Date End Date Jenae Goodman NP [address] [place] [id number] PCP - General Family Medicine 05/31/23 documented as of this encounter
--- OUTSIDE RECORDS SUMMARY | 2024-12-24 11:44 | XMS_ITS | Encounter Summary ---
Author Organization [facility] Address [address] [place] [address] [address] [place] [address] Care Team Providers Care Top Lift Cutter Name Role Phone Jenae Goodman NP Primary Care Provider [phone] Reason for Visit * Reason Onset Date Comments Nurse Triage 03/17/2024 Encounter Details Date Type Department Care Team (Late st Contact Info) Description 03/17/2024 Telephone [facility] [address] [place] [phone] Jenae Goodman NP [address] [place] [address] Nurse Triage Social History Tobacco Use Types [...] Description 03/15/2025 1:45 PM EDT Office Visit [facility] [address] [place] [address] Jenae Goodman NP [address] [place] [address] documented as of this encounter Visit Diagnoses Not on filedocumented in this encounter Care Teams Top Lift Cutter Relationship Specialty Start Date End Date Jenae Goodman NP [address] [place] [address] PCP - General Family Medicine 05/31/23 documented as of this encounter
== END 2024-12-24 10:19 | disposition home or self-care (01) ==
LOC: HO.HHCL 10:18
PROVIDERS: Visit Provider Internal Medicine
DX: D72.828 Other elevated white blood cell count (principal); R73.9 Hyperglycemia, unspecified
CPT/HCPCS: 36415; 85025

== ENCOUNTER 2025-07-29 22:28 | Emergency (ER) | payer SELFPAY ==
[2025-07-29 22:43] VITALS: BP 110/65; PULSE 84; RESP 18; TEMP 36.4; O2SAT 98; BMI 43.5
[2025-07-30 00:07] LABS: Resp Syncy Virus RNA Qual PCR NEGATIVE (Negative); SARS COV2 PCR INHOUSE NEGATIVE (Negative)
[2025-07-30 00:11] VITALS: BP 103/59; PULSE 87; RESP 17; TEMP 36.4; O2SAT 97
[2025-07-30 00:21] LABS: MANUAL DIFF FLAG NO
[2025-07-30 00:23] LABS: Hematocrit 39.3 % (37.0-47.0); Hemoglobin 12.7 g/dl (12.0-16.0); Imm Gran Abs Auto 0.06 X10*3/uL (0.00-0.03); Imm Gran Pct Auto 0.5 % (0.0-0.4); Lymphocytes Absolute Auto 3.2 X10*3/uL (1.2-4.9); Mean Corpuscular HGB Conc 32.3 g/dl (31.0-35.0); Mean Corpuscular Hemoglobin 27.3 pg (27.0-33.0); Mean Corpuscular Volume 84.5 fL (80.0-98.0); NRBC Abs Auto 0.000 X10*3/uL (0.0-0.012); NRBC Pct Auto 0.0 /100WBC (0.0-0.2); Platelet Count 384 X10*3/uL (160-400); Red Blood Count 4.65 X10*6/uL (4.20-5.50); White Blood Count 13.2 X10*3/uL (4.8-10.8)
--- NOTE | 2025-07-30 00:30 | ED.GENADULT ---
HPI - General Adult General Chief complaint: Nausea/Vomiting/Diarrhea Stated complaint: General Medical Time Seen by Provider: 07/30/25 00:03 Source: patient, RN notes reviewed and old records reviewed Mode of arrival: ambulatory Limitations: no limitations History of Present Illness ED Provider: Laina HPI narrative: Patient is a 25 year old female presenting today with nausea, vomiting, and abd pain since 1pm today. She has thrown up 4 times, stated her symptoms started suddenly. Pt endorses bilateral upper abdominal pain and chills. Denies fever, blood in vomit, eating anything out of her normal, sick contacts, or diarrhea. Pt states she could be , LMP was 2-3 months ago, however, her cycle is irregular. No previous abdominal surgeries. Related Data Previous Rx's ?Medication ?Instructions ?Recorded ondansetron 4 mg disintegrating 4 mg PO Q8H PRN nausea and 07/30/25 tablet vomiting #20 tabs Allergies Allergy/AdvReac Type Severity Reaction Status Date / Time No Known Allergies (No Known Allergy Verified 07/29/25 22:44 Allergies*) Review of Systems Constitutional: Constitutional: Reports as per HPI, Denies fatigue, Denies fever(s) and Denies headache(s) ENT: Denies headache(s) Cardiovascular: Cardiovascular: Denies chest pain and Denies dyspnea Respiratory: Respiratory: Denies cough and Denies dyspnea Gastrointestinal: Gastrointestinal: Reports abdominal pain, Denies constipation, Reports nausea and Reports vomiting Genitourinary: Genitourinary: Denies dysuria Musculoskeletal: Musculoskeletal: Denies back pain Integumentary/Breasts: Skin/Breast: Denies rash Neurologic: Denies headache(s) and Denies focal weakness Endocrine: Endocrine: Denies fatigue PMFSH Social History Social History Advance Directives: No Advance Directives Information Provided: No Do you have a plan to hurt others: No Plan Physical Exam ED Vital Signs: Vital Signs - 24 hr 07/29/25 22:43 07/30/25 00:11 Temperature 97.6 F 97.6 F Pulse Rate 84 87 Respiratory Rate 18 17 Blood Pressure 110/65 103/59 L Pulse Oximetry 98 97 Oxygen Delivery Method Room Air Room Air BMI result Body Mass Index 43.5 Const General: healthy appearing, comfortable, no acute distress, alert and awake Nutritional Appearance: well nourished Orientation/consciousness: patient oriented x3 HENMT Head: Yes normocephalic and Yes atraumatic Eyes Eyelids: Yes eyelids normal Conjunctivae: conjunctivae normal Sclerae: sclerae normal Corneas: corneas normal Neck Neck: Yes full ROM Resp Effort & Inspection: normal respiratory effort, able to speak in complete sentences, no audible wheezes and not labored GI Inspection: No distended Palpation (GI): Soft to palpation, not firm, Tenderness to palpation present (GI) in the LLQ, in the LUQ and in the RUQ, no guarding and not rigid Skin General skin exam: no rashes or lesions noted and elasticity normal Neuro General: patient oriented x3 Cognition (Neuro): normal cognition Extrem Other: Moving all extremities well without any obvious deformities Course Reevaluation(s) Reevaluation #1: The patient's labs are quite reassuring, on re-evaluation she reports feeling much better, she has not had any further nausea. She has some minor abdominal discomfort. She has no focal or severe abdominal pain. I discussed with the patient that I still believe her symptoms are most likely a viral origin. We will discharge the patient is stable condition, I discussed return precautions especially develops fevers or severe, worsening or focal abdominal discomfort to return and for re-evaluation for possible imaging which was deferred today. Time: 01:50 Medications Administered Discontinued Medications Generic Name Dose Route Start Last Admin Trade Name Maria Esther PRN Reason Stop Dose Admin Lactated Ringer's 1,000 mls @ 999 mls/hr 07/30/25 00:45 07/30/25 01:29 Lr IV 07/30/25 01:45 999 mls/hr .Q1H1M ANYI Administration Ondansetron HCl 4 mg 07/30/25 00:31 07/30/25 01:30 Ondansetron Hcl 4 Mg/2 Ml Vial IVPUSH 07/30/25 00:32 4 mg ONCE ONE Administration Medical Decision Making Medical Decision Making MDM Narrative: 25-year-old healthy female presents for evaluation of abdominal pain and vomiting that started around 1:00 p.m. this afternoon. She denies any previous surgical procedures. Denies any fevers, chills. Denies any sick contacts. Denies eating anything out of the ordinary. She is tender throughout her entire abdomen, no focal tenderness, no distention, no rigidity or guarding. Vital signs are stable. The patient's symptoms are most consistent with a viral enteritis. We will check basic labs, treat with the in his fluids and Zofran and evaluate. We will also check urinalysis and hCG to evaluate for as the patient is unsure if she is . Differential Diagnosis Differential Diagnoses: The differential diagnosis associated with the presentation includes Gastroenteritis Cholelithiasis Acute cholecystitis most likely Acute appendicitis Constipation Abdominal pain Gastroparesis Lab Data MDM Lab Attestation statement: I reviewed the patient's lab results. Mild leukocytosis to 13.2 which is likely due vomiting. No anemia. Normal platelet count. No electrolyte abnormalities warranting dimension. No significant transaminitis. Lipase with normal limits. The patient is not 07/30/25 00:17 07/30/25 00:17 Labs: Lab Results 07/29/25 07/30/25 07/30/25 Range/Units 23:14 00:17 01:07 WBC 13.2 H (4.8-10.8) X10*3/uL RBC 4.65 (4.20-5.50) X10*6/uL Hgb 12.7 (12.0-16.0) g/dl Hct 39.3 (37.0-47.0) % MCV 84.5 (80.0-98.0) fL MCH 27.3 (27.0-33.0) pg MCHC 32.3 (31.0-35.0) g/dl RDW 13.7 (11.0-16.0) % Plt Count 384 (160-400) X10*3/uL MPV 9.1 L (9.4-12.3) fL Immature Gran % (Auto) 0.5 H (0.0-0.4) % Neut % (Auto) 65.7 (45-73) % Lymph % (Auto) 23.9 (20-40) % [place]ascade % (Auto) 7.1 (2-11) % Eos % (Auto) 2.2 (0-4) % Baso % (Auto) 0.6 (0-2) % Lymph # (Auto) 3.2 (1.2-4.9) X10*3/uL Cascade # (Auto) 0.9 (0.1-1.2) X10*3/uL Eos # (Auto) 0.3 (0.0-0.4) X10*3/uL Baso # (Auto) 0.1 (0.0-0.2) X10*3/uL Abs Immat Gran (auto) 0.06 H (0.00-0.03) X10*3/uL Absolute Neuts (auto) 8.7 H (2.0-8.3) x10*3/uL Absolute Nucleated RBC 0.000 (0.0-0.012) X10*3/uL Nucleated RBC % (auto) 0.0 (0.0-0.2) /100WBC Sodium 141 (135-145) mmol/L Potassium 4.1 (3.3-5.1) mmol/L Chloride 106 (96-108) mmol/L Carbon Dioxide 28 (22-29) mmol/L Anion Gap 11 L (12-20) BUN 12 (9-16) mg/dL Creatinine 0.75 (0.5-1.4) mg/dL Estim Creat Clear Calc 126.4 Estimated GFR > 60 Random Glucose 113 (60-115) mg/dL Calcium 9.2 (8.4-10.2) mg/dL Total Bilirubin 0.3 (0.0-1.0) mg/dL AST 23 (5-31) U/L ALT 36 H (0-31) U/L Alkaline Phosphatase 84 (39-117) U/L Total Protein 6.9 (6.5-8.0) g/dL Albumin 4.2 (3.5-5.0) g/dL Lipase 22 (8-78) U/L Beta HCG, Quant < 2 mIU/mL Urine Color Yellow Urine Appearance Clear Urine pH 6.5 (5.0-9.0) Ur Specific [place] 1.025 (1.005-1.025) Urine Protein Negative (Neg-Trace) mg/dL Urine Glucose (UA) Negative (Negative) mg/dL Urine Ketones Negative (Negative) mg/dL Urine Blood Negative (Negative) Urine Nitrite Negative (Negative) Ur Leukocyte Esterase Negative (Negative) Urine RBC 0-2 (0-2) /HPF Urine WBC 0-5 (0-5) /HPF Ur Squamous Epith Cells 3-5 (0-2) /HPF Urine Bacteria None Seen (None Seen) Hyaline Casts 0-2 (0-2) /LPF Influenza Type A (PCR) NEGATIVE (Negative) Influenza Type B (PCR) NEGATIVE (Negative) RSV RNA Qual (PCR) NEGATIVE (Negative) SARS-CoV-2 RNA (RT-PCR) NEGATIVE (Negative) Discharge Plan Discharge Clinical Impression: Nausea & vomiting Patient Disposition: Home, Self-Care Instructions: Acute Nausea and Vomiting (ED) Additional Instructions: Your workup in the ER today was reassuring. You are not . You did not have any signs of urine infection. Your blood work was reassuring. I believe your symptoms are most likely related to a viral illness. Take Zofran as needed for nausea and vomiting. Drink lots of fluids, small sips at a time. Return for new or worsening symptoms, especially if you develop fevers or severe, localized abdominal pain Prescriptions: New ondansetron 4 mg tablet,disintegrating 4 mg PO Q8H PRN (Reason: nausea and vomiting) Qty: 20 0RF Print Language: Luxembourgish
[2025-07-30 00:46] LABS: Alanine Aminotransferase 36 U/L (0-31); Albumin Level 4.2 g/dL (3.5-5.0); Alkaline Phosphatase 84 U/L (39-117); Anion Gap 11 (12-20); Aspartate Amino Transferase 23 U/L (5-31); Blood Urea Nitrogen 12 mg/dL (9-16); Calcium 9.2 mg/dL (8.4-10.2); Carbon Dioxide 28 mmol/L (22-29); Chloride 106 mmol/L (96-108); Creatinine Clr Calc Pharmacy 126.4; Estimated Glomerular Filt Rate > 60; Lipase 22 U/L (8-78); Potassium 4.1 mmol/L (3.3-5.1); Sodium 141 mmol/L (135-145); Total Protein 6.9 g/dL (6.5-8.0)
[2025-07-30 01:27] LABS: Appearance Urine Clear; Glucose Urine UA Negative (Negative); PH 6.5 (5.0-9.0); Specific Gravity - Urine 1.025 (1.005-1.025)
--- OUTSIDE RECORDS SUMMARY | 2025-07-30 01:27 | XMS_ITS | Encounter Summary ---
Author Organization [employer] [facility] Address [address] [place] [address] [address] [place] [address] Care Team Providers Care Warehouse Delivery Manager Name Role Phone Vesta Casper Primary Care Provider Jenae Robertson CONSULTING SME Primary Care Provider [phone] Encounter Details Date Type Department Care Team (Latest Contact Info) Description 12/14/2020 Abstract [facility] CONVERSIONS Dental, Provider, DDS Social History Tobacco [...] on filedocumented in this encounter Care Teams Warehouse Delivery Manager Relationship Specialty Start Date End Date Vesta Casper FNP PCP - General Family Medicine 02/21/22 05/30/23 Jenae Goodman NP [address] [place] [address] PCP - General Family Medicine 05/31/23 documented as of this encounter
--- OUTSIDE RECORDS SUMMARY | 2025-07-30 01:27 | XMS_ITS | Clinical Summary ---
Author Organization [facility] Address [address] [place] [address] Phone Care Team Providers Care Rope Laying Machine Operator Name Role Phone Physician, Pcp Unknown Primary Care Provider Laura vailable Medications povidone-iodine (Betadine) 10 % topical solution Apply topically 1 (one) time each day. 473 mL 4 Active silver sulfADIAZINE (Silvadene) 1 % cream Apply topically 1 (one) time each day. 50 g 5 09/21/19 26 Active silver sulfADIAZINE (Silvadene) 1 % cream Apply topically 1 (one) time each day. 50 g 4 07/28/20 25 Active Problems Problem Noted Date Diagnosed Date [...] Comments Cervical Cancer Screening: Pap Smear 2020 Social Influencers of Health Screening 07/28/2022 Depression Screening 08/26/2024 DTaP,Tdap,and Td Vaccines (6 - Td or Tdap) 10/25/2024 10/25/2014, 02/24/2009, 05/17/2003, Additional history exists COVID-19 Vaccine ( season) 2025 05/31/2022, 10/26/2021, 10/05/2021 Influenza Vaccine (#1) 2025 0, 09/20/2017, 04/30/2013 RSV Immunization Adult Patients (1 - 1-dose 75+ series) 2074 Hepatitis [...] 5 Years) and At-Risk Patients (6 to 49 Years) Aged Out No longer eligible based on patient's age to complete this topic RSV Immunization Patients Under 20 months Aged Out No longer eligible based on patient's age to complete this topic Insurance MEDICAID - [place] Care Teams Rope Laying Machine Operator Relationship Specialty Start Date End Date Physician, Pcp Unknown PCP - General 07/22/24
--- OUTSIDE RECORDS SUMMARY | 2025-07-30 01:27 | XMS_ITS | Encounter Summary ---
Author Organization [facility] Address [address] [place] [address] Care Team Providers Care Free Lance Model Name Role Phone Jenae Goodman NP Primary Care Provider [phone] Reason for Visit * Reason Onset Date Comments Nurse Triage 03/17/2024 Encounter Details Date Type Department Care Team (Late st Contact Info) Description 03/17/2024 Telephone [facility] [address] [place] [address] Jenae Goodman NP [address] [place] [address] Nurse Triage Social History Tobacco Use Types [...] on filedocumented in this encounter Care Teams Free Lance Model Relationship Specialty Start Date End Date Jenae Goodman NP [address] [place] [address] PCP - General Family Medicine 05/31/23 documented as of this encounter
--- OUTSIDE RECORDS SUMMARY | 2025-07-30 01:27 | XMS_ITS | Encounter Summary ---
Author Organization [employer] [facility] Address [address] [place] [address] [address] [place] [address] Care Team Providers Care Angle Roll Operator Name Role Phone Jenae Goodman NP Primary Care Provider [phone] Encounter Details Date Type Department Care Team (Late st Contact Info) Description 06/11/2024 Orders Only [facility] [address] [place] [address] Provider, Historical, Social History Tobacco Use Types [...] on filedocumented in this encounter Care Teams Angle Roll Operator Relationship Specialty Start Date End Date Jenae Goodman NP [address] [place] [address] PCP - General Family Medicine 05/31/23 documented as of this encounter
--- OUTSIDE RECORDS SUMMARY | 2025-07-30 01:27 | XMS_ITS | Encounter Summary ---
Author Organization [employer] Address [address] [place] [address] [place] [address] Care Team Providers Care Supervisor Policy Change Clerks Name Role Phone Jenae Goodman NP Primary Care Provider [phone] Encounter Details Date Type Department Care Team ([facility] st Contact Info) Description 12/18/2024 Orders Only [facility] [address] [place] [address] Sulema Cantrell MD [address] [place] [address] Other elevated white blood cell (WBC) count [...] Diagnosis Comments CBC WITH AUTO DIFFERENTIAL Routine 07/30/2025 12:17 AM EST Other elevated white blood cell (WBC) count HCG, TOTAL, QN Routine 07/30/2025 12:17 AM EST Other elevated white blood cell (WBC) count LIPASE Routine 07/30/2025 12:17 AM EST Other elevated white blood cell (WBC) count COMPREHENSIVE METABOLIC PANEL Routine 07/30/2025 12:17 AM EST Other elevated white blood cell (WBC) count SARS COV2/INFLUENZA A/B AND RSV RNA QL NAAT Routine 07/29/2025 11:14 PM EST Other elevated white blood cell (WBC) count CBC WITH AUTO DIFFERENTIAL Routine 12/24/2024 10:23 AM EDT Other elevated white blood cell (WBC) count documented in this encounter Results * hCG, Total, Quantitative (07/30/2025 12:17 AM EST) HCG Quantitative <2 mIU/mL [facility] Comment:Weeks post LMP Appro ximate hCG(Last Menstrual Period) Range (mIU/ml)3 - 4 weeks 9 - 1304 - 5 weeks 75 - 2,6005 - 6 weeks 850 - 20,8006 - 7 weeks 4000 - 100,2007 - 12 weeks 11,500 - 289,02585 - 16 weeks 18,300 - 137,70923 - 29 weeks (2nd trimester) 1,400 - 53,31737 - 41 weeks (3rd trimester) 940 - 60,000The Hernandez B- hCG assay is used for the early detection ofpregnancy; it cannot be used to diagnose any conditionunrelated to . If a B-hCG level is not supportedby the clinical evidence, results should be confirmed by analternative method (qualitative urine hCG, for example). 07/30/2025 12:1 7 AM EST 07/30/2025 12:20 AM EST us Generic External Data Provider LAB BLOOD ORDERAB LES Final Result Performing Organization Address City/[facility]/ZIP Co de Phone Number [facility] [address] [place] [phone] * Lipase (07/30/2025 12:17 AM EST) Lipase 22 8 - 78 U/L [facility] 07/30/2025 12:1 7 AM EST 07/30/2025 12:20 AM EST us Generic External Data Provider LAB BLOOD ORDERAB LES Final Result Performing Organization Address [facility] Co de Phone Number [facility] [address] [place] [phone] * (ABNORMAL) Comprehensive Metabolic Panel (07/30/2025 12:17 AM EST) Sodium 141 135 - 145 mmol/L [facility] Potassium 4.1 3.3 - 5.1 mmol/L [facility] Chloride 106 96 - 108 mmol/L [facility] Carbon Dioxide 28 22 - 29 mmol/L [facility] Anion Gap 11(L) 12 - 20 [facility] Urea Nitrogen (BUN) 12 9 - 16 mg/dL [facility] Creatinine, Serum 0.75 0.5 - 1.4 mg/dL [facility] Creatinine Clr Calc Pharmacy 126.4 [facility] Comment:Provided height and weight: 154.94 cm,104.5 kg.eGFR (calculated from the MDRD study equation) and eCrCl(calculated from the Cockcroft-Gault equation) are based ondifferent parameters and may not yield comparable results.If eCrCl result is absurd, please check patient'sheight/weight. Estimated Glomerular Filt Rate >60 [facility] Comment:Chronic Kidney Disea se: Estimated GFR < 60 mL/min/[id number] Kidney Disease: Estimated GFR < 15 mL/min/1.73m2 Glucose 113 60 - 115 mg/dL [facility] Calcium 9.2 8.4 - 10.2 mg/dL [facility] Bilirubin, Total 0.3 0.0 - 1.0 mg/dL [facility] Aspartate Amino Transferase 23 5 - 31 U/L [facility] Alanine Aminotransferase 36(H) 0 - 31 U/L [facility] Total Protein 6.9 6.5 - 8.0 g/dL [facility] Albumin Level 4.2 3.5 - 5.0 g/dL [facility] Alkaline Phosphatase 84 39 - 117 U/L [facility] 07/30/2025 12:1 7 AM EST 07/30/2025 12:20 AM EST us Generic External Data Provider LAB BLOOD ORDERAB LES Final Result Performing Organization Address City/State/[facility] Co de Phone Number [facility] [address] [place] [phone] * (ABNORMAL) CBC auto differential (07/30/2025 12:17 AM EST) White Blood Count 13.2(H) 4.8 - 10.8 X10*3/uL [facility] Red Blood Count 4.65 4.20 - 5.50 X10*6/uL [facility] Hemoglobin 12.7 12.0 - 16.0 g/dl [facility] Hematocrit 39.3 37.0 - 47.0 % [facility] Mean Corpuscular Volume 84.5 80.0 - 98.0 fL [facility] Mean Corpuscular Hemoglobin 27.3 27.0 - 33.0 pg [facility] Mean Corpuscular HGB Conc 32.3 31.0 - 35.0 g/dl [facility] Red Cell Distribution Width 13.7 11.0 - 16.0 % [facility] Platelet Count 384 160 - 400 X10*3/uL [facility] Mean Platelet Volume 9.1(L) 9.4 - 12.3 fL [facility] Neutrophils Percent Auto 65.7 45 - 73 % [facility] Imm Gran Pct Auto 0.5(H) 0.0 - 0.4 % [facility] Lymphocytes Percent Auto 23.9 20 - 40 % [facility] Monocytes Percent Auto 7.1 2 - 11 % [facility] Eosinophils Percent Auto 2.2 0 - 4 % [facility] Basophils Percent Auto 0.6 0 - 2 % [facility] NRBC Pct Auto 0.0 0.0 - 0.2 /100WBC [facility] Neutrophils Absolute Auto 8.7(H) 2.0 - 8.3 x10*3/uL [facility] Imm Gran Abs Auto 0.06(H) 0.00 - 0.03 X10*3/uL [facility] Lymphocytes Absolute Auto 3.2 1.2 - 4.9 X10*3/uL [facility] Monocytes Absolute Auto 0.9 0.1 - 1.2 X10*3/uL [facility] Eosinophils Absolute Auto 0.3 0.0 - 0.4 X10*3/uL [facility] Basophils Absolute Auto 0.1 0.0 - 0.2 X10*3/uL [facility] NRBC Abs Auto 0.000 0.0 - 0.012 X10*3/uL [facility] 07/30/2025 12:1 7 AM EST 07/30/2025 12:20 AM EST us Generic External Data Provider LAB BLOOD ORDERAB LES Final Result [facility] [address] [place] [phone] * SARS-CoV-2 RNA, Influenza A/B, and RSV RNA, Ql NAAT (07/29/2025 11:14 PM EST) Influenza A PCR NEGATIVE Negative [facility] Influenza B PCR NEGATIVE Negative [facility] Resp Syncy Virus RNA Qual PCR NEGATIVE Negative [facility] SARS COV2 PCR NEGATIVE Negative [facility] Comment:All test results mus t be correlated with clinical findings.Negative results do not preclude SARS-CoV2, influenza Avirus, influenza B virus and/or RSV infectionand should not be used as the sole basis for treatment orother patient management decisions. Negative results must becombined with clinical observations, patient history, andepidemiological information.This test has not been evaluated for monitoring treatment ofinfection.This test has been authorized by the FDA under an EmergencyUse Authorization (EUA) for use by authorized laboratories.Testing performed on the [employer] GeneXpert utilizingreal-time RT-PCR.All SARS CoV2 and positive influenza A/B results arereported to [facility]. 07/29/2025 11:1 4 PM EST 07/29/2025 11:22 PM EST us Generic External Data Provider LAB MICROBIOLOGY - GENERAL ORDERABLES Final Result [facility] [address] [place] [phone] * (ABNORMAL) CBC auto differential (12/24/2024 10:23 AM EDT) White Blood Count 11.6(H) 4.8 - 10.8 X10*3/uL [facility] Red Blood Count 4.86 4.20 - 5.50 X10*6/uL [facility] Hemoglobin 13.3 12.0 - 16.0 g/dl [facility] Hematocrit 42.0 37.0 - 47.0 % [facility] Mean Corpuscular Volume 86.4 80.0 - 98.0 fL [facility] Mean Corpuscular Hemoglobin 27.4 27.0 - 33.0 pg [facility] Mean Corpuscular HGB Conc 31.7 31.0 - 35.0 g/dl [facility] Red Cell Distribution Width 14.3 11.0 - 16.0 % [facility] Platelet Count 420(H) 160 - 400 X10*3/uL [facility] Mean Platelet Volume 10.1 9.4 - 12.3 fL [facility] Neutrophils Percent Auto 67.1 45 - 73 % [facility] Imm Gran Pct Auto 0.4 0.0 - 0.4 % [facility] Lymphocytes Percent Auto 21.0 20 - 40 % [facility] Monocytes Percent Auto 8.6 2 - 11 % [facility] Eosinophils Percent Auto 2.5 0 - 4 % [facility] Basophils Percent Auto 0.4 0 - 2 % [facility] NRBC Pct Auto 0.0 0.0 - 0.2 /100WBC [facility] Neutrophils Absolute Auto 7.8 2.0 - 8.3 x10*3/uL [facility] Imm Gran Abs Auto 0.05(H) 0.00 - 0.03 X10*3/uL [facility] Lymphocytes Absolute Auto 2.4 1.2 - 4.9 X10*3/uL [facility] Monocytes Absolute Auto 1.0 0.1 - 1.2 X10*3/uL [facility] Eosinophils Absolute Auto 0.3 0.0 - 0.4 X10*3/uL [facility] Basophils Absolute Auto 0.1 0.0 - 0.2 X10*3/uL [facility] NRBC Abs Auto 0.000 0.0 - 0.012 X10*3/uL [facility] Blood Venous blood specimen / Unknown 12/24/2024 10:23 AM EDT 12/24/2024 11:23 AM EDT us Sulema Cantrell MD LAB BLOOD ORDERABLES Final Result [facility] [address] [place] [phone] documented in this encounter Visit Diagnoses Diagnosis Other elevated white blood cell (WBC) count- Primary documented in this encounter Additional Health Concerns Assessment Noted Time PHQ-9 Depression Total Score: 0 12/17/19 25 2:28 PM EDT documented as of this encounter Care Teams Supervisor Policy Change Clerks Relationship Specialty Start Date End Date Jenae Goodman NP [address] [place] [address] PCP - General Family Medicine 05/31/23 documented as of this encounter
--- OUTSIDE RECORDS SUMMARY | 2025-07-30 01:27 | XMS_ITS | Clinical Summary ---
Author Organization [employer] Address [address] [place] [address] [address] [place] [address] Care Team Providers Care Supervisor Refining Name Role Phone Jenae Goodman NP Primary Care Provider [phone] Allergies No known active allergies Medications acetaminophen [...] take another tablet 2 tablet 4 Active cetirizine (ZyrTEC) 10 MG tablet Take 1 tablet (10 mg) by mouth Once per day. 30 tablet 3 5 12/25/19 26 Active fluticasone (Flonase) 50 MCG/ACT nasal spray Administer 2 sprays into each nostril Once per day. Shake gently. Before first use, prime pump. After use, clean tip and replace cap. 16 g 3 5 12/25/19 26 Active Ketotifen Fumarate (Alaway) 0.035 % solution Administer 1 drop into affected eye(s) if needed in the morning and at bedtime (eye itching). 10 mL 3 5 Active Active Problems Problem Noted Date Diagnosed [...] ed type 04/30/2013 Oppositional defiant disorder 04/30/2013 Immunizations Immunization Administration Dates Next Due DTP 02/24/2009,1999,1999 DTaP [...] Packs/Day Years Used Date Smoking Tobacco: Never Passive Smoke Exposure: Never Smokeless Tobacco: Never Tobacco Cessation:Counseling Given: Not Answered Alcohol Answer Date Recorded Q1: How often [...] Questionnaire Data Not on file 0 12/16/2024 Housing Stability Answer Date Recorded What is your housing situation today? I have nina churchill 01/01/[address] you li ve. Do you have problems with any of the following? None of the above 01/01/2025 Food Insecurity Answer Date Recorded Within the past 12 months, y ou worried that your food would run out before you got money to buy more: Never True 01/01/2025 Within the past 12 months,th e food you bought just didn't last and you didn't have enough money to get more: Never True 04/2025 Transportation Answer Date Recorded In the past 12 months, has l ack of transportation kept you from medical appts, meetings, work or from getting things needed for daily living? No 01/01/2025 Utilities Answer Date Recorded In the past 12 months, has t he electric, gas, oil or water company threatened to shut off services in your home? Yes 01/01/2025 Depression Answer Date Recorded Patient Health Questionnaire-2 Score 0 12/16/2024 Internet Access Answer Date Recorded Internet Access Q1 No 01/01/2025 Internet Access Q2 I do not want or need it 04/2025 Comments Unknown Sex and Gender Information Value Date Recorded Sex Assigned at Female 06/25/2022 10:21 AM EDT Legal Sex Female 10:21 AM EDT Gender Identity Female 06/25/2022 10:21 AM EDT Sexual Orientation Straight 06/25/2022 10 :21 AM EDT Last Filed Vital Signs Vital Sign Reading Time Taken Comments Blood Pressure 131/72 01/01/2025 9:10 AM EDT Pulse 94 01/01/2025 9:10 AM EDT Temperature 36.6 C (97.8 F) 01/01/2025 9:10 AM EDT Respiratory Rate 18 01/01/2025 9:10 AM EDT Oxygen Saturation 97% 01/01/2025 9:10 AM EDT Inhaled Oxygen Concentration - - Weight 112 kg (247 lb 8 oz) 01/01/2025 9:10 AM E DT Height 157.5 cm (5' 2 ) 01/01/2025 9:10 AM EDT Body Mass Index 45.27 01/01/2025 9:10 AM EDT Plan of Treatment Health Maintenance Due Date Last Done Comments Disability Screening 1999 Family Planning (PISQ) 2014 Dental Oral Exam 06/16/2021 12/14/2020, 07/2018, 04/07/2015, Additional history exists Dental Prophylaxis 06/16/2021 12/14/2020, 1 09/06/2017, 04/07/2015, Additional history exists Dental X-Ray: Bitewings 12/15/2021 12/15/19 21, 07/07/2018, 04/07/2015, Additional history exists Dental X-Ray: Full Mouth 12/16/2023 12/14/2020, 04/27 HPV/Cotest 12/15/2024 Pap Smear 12/15/2024 12/15/2021 COVID-19 Vaccine ( season) 2025 05/31/2022, 10/26/2021, 10/05/2021 Influenza Vaccine (#1) 2025 , 09/20/2017, 04/30/2013 Alcohol/Substance Use Screening 12/16/2025 12/16/2024 Depression Screening 12/16/2025 12/16/2024, 12/17/19 25 SDOH Screening 01/01/2026 01/01/2025 Tobacco Screening 01/01/2026 01/01/2025 Lipid Panel 11/24/2028 11/25/2023, 07/11/2022 DTaP/Tdap/Td Vaccines [...] Completed 06/10/2015, 013 HIV Screening Completed 12/16/2024, 08/2023, 07/11/2022, Additional history exists Hepatitis C Screening Completed 12/16/2024 , 11/25/2023, 07/11/2022, Additional history exists Meningococcal B Vaccine Aged Out No l onger eligible based on patient's age to complete this topic Pneumococcal Vaccine: Pediatrics (0 to 5 Years) and At-Risk Patients (6 to 49) Years Aged Out No longer eligible based on patient's age to complete this topic RSV under 20 months Aged Out No longe r eligible based on patient's age to complete this topic Rotavirus Vaccines Aged Out No longer eligible based on patient's age to complete this topic Procedures Procedure Name Priority Date/Time Associated Diagnosis Comments HCG, TOTAL, QN Routine 07/30/2025 12:17 AM EST Other elevated white blood cell (WBC) count LIPASE Routine 07/30/2025 12:17 AM EST Other elevated white blood cell (WBC) count COMPREHENSIVE METABOLIC PANEL Routine 07/30/2025 12:17 AM EST Other elevated white blood cell (WBC) count CBC WITH AUTO DIFFERENTIAL Routine 07/30/2025 12:17 AM EST Other elevated white blood cell (WBC) count SARS COV2/INFLUENZA A/B AND RSV RNA QL NAAT Routine 07/29/2025 11:14 PM EST Other elevated white blood cell (WBC) count HEPATITIS C AB W/REFL TO HCV RNA, [...] Recently Relevant to Health Maintenance Results * (ABNORMAL) CBC auto differential (07/30/2025 12:17 AM EST) White Blood Count 13.2(H) 4.8 - 10.8 X10*3/uL [facility] Red Blood Count 4.65 4.20 - 5.50 X10*6/uL [facility] Hemoglobin 12.7 12.0 - 16.0 g/dl [facility] Hematocrit 39.3 37.0 - 47.0 % [facility] Mean Corpuscular Volume 84.5 80.0 - 98.0 fL [facility] Mean Corpuscular Hemoglobin 27.3 27.0 - 33.0 pg [facility] Mean Corpuscular HGB Conc 32.3 31.0 - 35.0 g/dl [facility] Red Cell Distribution Width 13.7 11.0 - 16.0 % [facility] Platelet Count 384 160 - 400 X10*3/uL [facility] Mean Platelet Volume 9.1(L) 9.4 - 12.3 fL [facility] Neutrophils Percent Auto 65.7 45 - 73 % [facility] Imm Gran Pct Auto 0.5(H) 0.0 - 0.4 % [facility] Lymphocytes Percent Auto 23.9 20 - 40 % [facility] Monocytes Percent Auto 7.1 2 - 11 % [facility] Eosinophils Percent Auto 2.2 0 - 4 % [facility] Basophils Percent Auto 0.6 0 - 2 % [facility] NRBC Pct Auto 0.0 0.0 - 0.2 /100WBC [facility] Neutrophils Absolute Auto 8.7(H) 2.0 - 8.3 x10*3/uL [facility] Imm Gran Abs Auto 0.06(H) 0.00 - 0.03 X10*3/uL [facility] Lymphocytes Absolute Auto 3.2 1.2 - 4.9 X10*3/uL [facility] Monocytes Absolute Auto 0.9 0.1 - 1.2 X10*3/uL [facility] Eosinophils Absolute Auto 0.3 0.0 - 0.4 X10*3/uL [facility] Basophils Absolute Auto 0.1 0.0 - 0.2 X10*3/uL [facility] NRBC Abs Auto 0.000 0.0 - 0.012 X10*3/uL [facility] 07/30/2025 12:1 7 AM EST 07/30/2025 12:20 AM EST us Generic External Data Provider LAB BLOOD ORDERAB LES Final Result [facility] [address] [place] [phone] * hCG, Total, Quantitative (07/30/2025 12:17 AM EST) HCG Quantitative <2 mIU/mL [facility] Comment:Weeks post LMP Appro ximate hCG(Last Menstrual Period) Range (mIU/ml)3 - 4 weeks 9 - 1304 - 5 weeks 75 - 2,6005 - 6 weeks 850 - 20,8006 - 7 weeks 4000 - 100,2007 - 12 weeks 11,500 - 289,08148 - 16 weeks 18,300 - 137,96974 - 29 weeks (2nd trimester) 1,400 - 53,31497 - 41 weeks (3rd trimester) 940 - 60,000The Hernandez B- hCG assay is used for the early detection ofpregnancy; it cannot be used to diagnose any conditionunrelated to . If a B-hCG level is not supportedby the clinical evidence, results should be confirmed by analternative method (qualitative urine hCG, for example). 07/30/2025 12:1 7 AM EST 07/30/2025 12:20 AM EST Generic External Data Provider LAB BLOOD ORDERAB LES Final Result Performing Organization Address [facility] Co de Phone Number [facility] [address] [place] [phone] * Lipase (07/30/2025 12:17 AM EST) Lipase 22 8 - 78 U/L [facility] 07/30/2025 12:1 7 AM EST 07/30/2025 12:20 AM EST Generic External Data Provider LAB BLOOD ORDERAB LES Final Result Performing Organization Address [facility] de Phone Number [facility] [address] [place] [phone] * (ABNORMAL) Comprehensive Metabolic Panel (07/30/2025 12:17 AM EST) Sodium 141 135 - 145 mmol/L [facility] Potassium 4.1 3.3 - 5.1 mmol/L [facility] Chloride 106 96 - 108 mmol/L [facility] Carbon Dioxide 28 22 - 29 mmol/L [facility] Anion Gap 11(L) 12 - 20 [facility] Urea Nitrogen (BUN) 12 9 - 16 mg/dL [facility] Creatinine, Serum 0.75 0.5 - 1.4 mg/dL [facility] Creatinine Clr Calc Pharmacy 126.4 [facility] Comment:Provided height and weight: 154.94 cm,104.5 kg.eGFR (calculated from the MDRD study equation) and eCrCl(calculated from the Cockcroft-Gault equation) are based ondifferent parameters and may not yield comparable results.If eCrCl result is absurd, please check patient'sheight/weight. Estimated Glomerular Filt Rate >60 [facility] Comment:Chronic Kidney Disea se: Estimated GFR < 60 mL/min/1.40j0Vcryzy Kidney Disease: Estimated GFR < 15 mL/min/1.73m2 Glucose 113 60 - 115 mg/dL [facility] Calcium 9.2 8.4 - 10.2 mg/dL [facility] Bilirubin, Total 0.3 0.0 - 1.0 mg/dL [facility] Aspartate Amino Transferase 23 5 - 31 U/L [facility] Alanine Aminotransferase 36(H) 0 - 31 U/L [facility] Total Protein 6.9 6.5 - 8.0 g/dL [facility] Albumin Level 4.2 3.5 - 5.0 g/dL [facility] Alkaline Phosphatase 84 39 - 117 U/L [facility] 07/30/2025 12:1 7 AM EST 07/30/2025 12:20 AM EST us Generic External Data Provider LAB BLOOD ORDERAB LES Final Result [facility] [address] [place] [phone] * SARS-CoV-2 RNA, Influenza A/B, and RSV RNA, Ql NAAT (07/29/2025 11:14 PM EST) Influenza A PCR NEGATIVE Negative [facility] Influenza B PCR NEGATIVE Negative [facility] Resp Syncy Virus RNA Qual PCR NEGATIVE Negative [facility] SARS COV2 PCR NEGATIVE Negative [facility] Comment:All test results mus t [...] use by authorized laboratories.Testing performed on the [employer] GeneXpert utilizingreal-time RT-PCR.All SARS CoV2 and positive influenza A/B results arereported to [facility]. 07/29/2025 11:1 4 PM EST 07/29/2025 11:22 PM EST us Generic External Data Provider LAB MICROBIOLOGY - GENERAL ORDERABLES Final Result Performing Organization Address [facility]/ZIP Co de Phone Number [facility] [address] [place] [phone] * Hepatitis C Antibody with Reflex to HCV, RNA, Quantitative, Real-Time PCR (12/16/2024 2:51 PM EDT) Hepatitis C Antibody Nonreactive Nonreactive [facility] Comment:Antibodies to HCV no t detected; does not exclude early acuteHCV infection. Blood Venous blood specimen / Unknown 12/16/2024 2:51 PM EDT 12/16/2024 5:45 PM EDT us Sulema Cantrell MD LAB BLOOD ORDERABLES Final Result Performing Organization Address [facility] Co de Phone Number [facility] [address] [place] [phone] * HIV-1/2 Antigen and Antibodies, Fourth Generation, with Reflexes (12/16/2024 2:51 PM EDT) HIV AB/AG Nonreactive Nonreactive [facility] Comment:HIV-1 p24 Ag and/or HIV-1/HIV-2 Ab not detected.A test result that is nonreactive does not exclude thepossibility of exposure to or infection with HIV-1 and/orHIV-2. Nonreactive results in this assay for individualswith prior exposure to HIV-1 and/or HIV-2 may be due toantigen and antibody levels that are below the limit ofdetection of this assay.The [employer] HIV Ag/Ab Combo assay result andsupplemental assay results should be interpreted inconjunction with the patient's clinical presentation,history and other laboratory results. If the results areinconsistent with clinical evidence, additional testing issuggested to confirm the result. Blood Venous blood specimen / Unknown 12/16/2024 2:51 PM EDT 12/16/2024 5:45 PM EDT us Sulema Cantrell MD LAB BLOOD ORDERABLES Final Result [facility] [address] [place] [phone] * (ABNORMAL) Lipid Panel, Standard (11/25/2023 12:02 PM EDT) Triglycerides 90 <150 mg/dL [facility] Comment:Desirable Triglyceri de: less than 150 mg/dLBorderline High Triglyceride 150-199 mg/dLHigh Triglyceride: 200-499 mg/dLVery High Triglyceride: greater than or equal to 5OO mg/dL Cholesterol 166 <200 mg/dL [facility] Comment:Desirable Cholestero l: less than 200 mg/dLBorderline High Cholesterol: 200-239 mg/dLHigh Cholesterol: greater than 239 mg/dL LDL Cholesterol Calculated 109(H) <100 mg/dL [facility] Comment:Desirable LDL: less than 100 mg/dLNear Optimal/Above Optimal LDL: 110- 129 mg/dLBorderline High LDL: 130-159 mg/dLHigh LDL: 160-189 mg/dLVery High LDL: greater than or equal to 190 mg/dL HDL Cholesterol 39(L) >40 mg/dL [facility] Comment:Desirable HDL: great er than 40 mg/dL Note: This HDL assay may give artificially low results in patients with liver disease. Blood Venous blood specimen / Unknown 11/25/2023 12:02 PM EDT 11/25/2023 1:16 PM EDT Jenae Goodman NP LAB BLOOD ORDERABLES Final Resu lt [facility] [address] [place] [phone] * HM PAP/HPV (12/15/2021 2:55 PM EDT) Historical Provider HEALTH MAINTENANCE Final Result from Last 3 Months or Most Recently Relevant to Health Maintenance Insurance [facility] MEDICAID STAND ADULT Care Teams Supervisor Refining Relationship Specialty Start Date End Date Jenae Goodman NP [address] [place] [phone] PCP - General Family Medicine 05/31/23
[2025-07-30] MEDS: Lactated Ringers 1,000 ML 999 ML IV (01:29)
[2025-07-30 03:04] VITALS: BP 110/68; PULSE 85; RESP 17; TEMP 36.4; O2SAT 97
== END 2025-07-30 03:13 | disposition home or self-care (01) ==
PROVIDERS: Physician Assistant; Emergency Provider Emergency Medicine
DX: R11.2 Nausea with vomiting, unspecified (principal); R10.23 Pelvic and perineal pain bilateral; Z03.818 Encounter for observation for suspected exposure to other biological agents ruled out
CPT/HCPCS: 36415; 80053; 81001; 83690; 84702; 85025; 87637; 96365; 96366; 96375; 99284; J2405; J7120